=== PATIENT | male | born 1940 | race Caucasian/White ===

== ENCOUNTER 2018-11-15 10:02 | Emergency (ER) | payer BC, MEDICARE ==
[2018-11-15] MEDS: Morphine 10 MG/ML SDV IVPUSH ONE (11:08)
[2018-11-15] MEDS: Sodium Chloride 0.9% 1,000 ML IV SCH (11:20)
[2018-11-15] MEDS: Ketorolac 30 MG/ML SDV ONE (11:29)
[2018-11-15] MEDS: LORazepam 2 MG/ML SDV ONE (11:38)
--- NOTE | 2018-11-15 14:01 | EDM.PDOC ---
ED HPI GENERAL MEDICAL PROBLEM - General Stated Complaint: SEVERE ABDOMINAL PAIN Time Seen by Provider: 11/15/18 10:02 Source of Information: Reports: Patient, Family History Limitations: Reports: No Limitations - History of Present Illness INITIAL COMMENTS - FREE TEXT/NARRATIVE: This is a 78yo M who arrived by Private vehicle driven by his for severe lower abdominal pain. He states there is some radiation up the abdomen. He has a history of b/l lower inguinal hernias which have enlarged. He Denies prior pain like this but has has some tenderness and pain in the past which he has pushed through and not seen a provider. He denies any nausea and vomiting and he had a recent BM yesterday. Onset: Sudden Duration: Hour(s): Location: Reports: Abdomen Quality: Reports: Ache, Stabbing Severity: Severe Improves with: Reports: None Worsens with: Reports: None Associated Symptoms: Reports: No Other Symptoms - Related Data Allergies Allergy/AdvReac Type Severity Reaction Status Date / Time No Known Allergies Allergy Verified 11/15/18 11:52 Home Meds: Home Meds Alpha Lipoic Acid 100 mg PO DAILY 11/15/18 [History] Lecithin [Gram-O-Leci] 1,000 mg PO DAILY 11/15/18 [History] Levothyroxine 112 mcg PO DAILY 11/15/18 [History] Red Yeast Rice 600 mg PO DAILY 11/15/18 [History] Rutin/Quercetin/Bioflav/Bilber [Bilberry Extract 40 MG] 1 tab PO DAILY 11/15/18 [History] Ubidecarenone [Coenzyme Q10] 60 mg PO DAILY 11/15/18 [History] ED ROS GENERAL - Review of Systems Review Of Systems: ROS reveals no pertinent complaints other than HPI. ED EXAM, GI/ABD - Physical Exam Exam: See Below Exam Limited By: No Limitations General Appearance: Alert, WD/WN, Severe Distress Eyes: Bilateral: EOMI Ears: Normal External Exam Nose: Normal Inspection Throat/Mouth: Normal Inspection Head: Atraumatic, Normocephalic Neck: Normal Inspection Respiratory/Chest: No Respiratory Distress, Lungs Clear, Normal Breath Sounds Cardiovascular: Normal Peripheral Pulses, Tachycardia GI/Abdominal Exam: Abnormal Bowel Sounds (decrease BS) (Male) Exam: Other (large hernias b/l lower pelvis into b/l lower scrotum) Extremities: Other (mottling of thighs b/l; cyanosis of b/l hands) Psychiatric: Anxious Skin Exam: Cyanosis (of hands), Mottled (thighs) Course - Vital Signs Last Recorded V/S: Last Vital Signs Temp 35.8 C 11/15/18 10:35 Pulse 58 L 11/15/18 10:35 Resp 18 11/15/18 10:35 BP 93/64 11/15/18 10:35 Pulse Ox - Orders/Labs/Meds Orders: Active Orders 24 hr Category Date Time Status Cardiac Monitoring [RC] .As Directed Care 11/15/18 11:54 Active Abdomen Pelvis wo Cont [CT] Stat Exams 11/15/18 10:11 Taken Labs: Laboratory Tests 11/15/18 11/15/18 11/15/18 Range/Units 10:30 10:30 10:30 WBC 6.6 (4.0-11.0) K/uL RBC 4.74 (4.50-6.50) M/uL Hgb 14.2 (13.0-18.0) g/dL Hct 43.0 (40.0-54.0) % MCV 91 (76-96) fL MCH 30.0 (27.0-32.0) pg MCHC 33.0 (31.0-35.0) g/dL RDW 13.5 (11.0-16.0) % Plt Count 217 (150-400) K/uL MPV 11.5 H (6.0-10.0) fL Neut % (Auto) 88.6 H (45.0-70.0) % Lymph % (Auto) 7.3 L (20.0-40.0) % Newberry % (Auto) 3.0 (3.0-10.0) % Eos % (Auto) 0.9 L (1.0-5.0) % Baso % (Auto) 0.2 (0.0-0.5) % Neut # (Auto) 5.82 (2.00-7.50) K/uL Lymph # (Auto) 0.48 L (1.50-4.00) K/uL Newberry # (Auto) 0.20 (0.20-0.80) K/uL Eos # (Auto) 0.06 (0.04-0.40) K/uL Baso # (Auto) 0.01 L (0.02-0.10) K/uL PT 10.4 (9.0-11.5) sec INR 1.1 (1.0-3.5) Sodium 142 (136-145) mmol/L Potassium 4.2 (3.5-5.1) mmol/L Chloride 103 (98-107) mmol/L Carbon Dioxide 29.5 (21.0-32.0) mmol/L Anion Gap 13.7 (5.0-15.0) mmol/L BUN 24 (8-26) mg/dL Creatinine 1.29 (0.70-1.30) mg/dL Est Cr Clr Drug Dosing TNP Estimated GFR (MDRD) 54 L (>60) MLS/MIN BUN/Creatinine Ratio 18.6 (6-25) Glucose 148 H D (74-100) mg/dL Lactic Acid (0.90-1.70) mmol/L Calcium 8.8 (8.5-10.1) mg/dL Total Bilirubin 0.7 (0.0-1.0) mg/dL AST 22 (15-37) U/L ALT 20 (12-78) U/L Alkaline Phosphatase 85 (46-116) U/L Troponin I < 0.017 (0.000-0.060) ng/mL Total Protein 7.3 (6.4-8.2) g/dL Albumin 3.7 (3.4-5.0) g/dL Globulin 3.6 (2.2-4.2) g/dL Albumin/Globulin Ratio 1.0 (0.8-2.0) Lipase (73-393) U/L 11/15/18 11/15/18 Range/Units 10:30 10:30 WBC (4.0-11.0) K/uL RBC (4.50-6.50) M/uL Hgb (13.0-18.0) g/dL Hct (40.0-54.0) % MCV (76-96) fL MCH (27.0-32.0) pg MCHC (31.0-35.0) g/dL RDW (11.0-16.0) % Plt Count (150-400) K/uL MPV (6.0-10.0) fL Neut % (Auto) (45.0-70.0) % Lymph % (Auto) (20.0-40.0) % Newberry % (Auto) (3.0-10.0) % Eos % (Auto) (1.0-5.0) % Baso % (Auto) (0.0-0.5) % Neut # (Auto) (2.00-7.50) K/uL Lymph # (Auto) (1.50-4.00) K/uL Newberry # (Auto) (0.20-0.80) K/uL Eos # (Auto) (0.04-0.40) K/uL Baso # (Auto) (0.02-0.10) K/uL PT (9.0-11.5) sec INR (1.0-3.5) Sodium (136-145) mmol/L Potassium (3.5-5.1) mmol/L Chloride (98-107) mmol/L Carbon Dioxide (21.0-32.0) mmol/L Anion Gap (5.0-15.0) mmol/L BUN (8-26) mg/dL Creatinine (0.70-1.30) mg/dL Est Cr Clr Drug Dosing Estimated GFR (MDRD) (>60) MLS/MIN BUN/Creatinine Ratio (6-25) Glucose (74-100) mg/dL Lactic Acid 1.60 (0.90-1.70) mmol/L Calcium (8.5-10.1) mg/dL Total Bilirubin (0.0-1.0) mg/dL AST (15-37) U/L ALT (12-78) U/L Alkaline Phosphatase (46-116) U/L Troponin I (0.000-0.060) ng/mL Total Protein (6.4-8.2) g/dL Albumin (3.4-5.0) g/dL Globulin (2.2-4.2) g/dL Albumin/Globulin Ratio (0.8-2.0) Lipase 590 H* (73-393) U/L Meds: Medications Discontinued Medications Generic Name Dose Route Start Last Admin Trade Name Freq PRN Reason Stop Dose Admin Sodium Chloride 1,000 mls @ 999 mls/hr 11/15/18 12:00 11/15/18 11:20 Normal Saline IV 999 mls/hr ASDIRECTED GUILLERMINA Administration Ketorolac Tromethamine Confirm 11/15/18 11:33 11/15/18 11:29 Toradol Administered 11/15/18 11:34 30 mg Dose Administration 30 mg .ROUTE .STK-MED ONE Lorazepam Confirm 11/15/18 11:38 11/15/18 11:38 Ativan Administered 11/15/18 11:39 0.5 mg Dose Administration 2 mg .ROUTE .STK-MED ONE Morphine Sulfate 4 mg 11/15/18 11:55 11/15/18 11:08 Morphine IVPUSH 11/15/18 11:56 4 mg ONETIME ONE Administration - Re-Assessments/Exams Free Text/Narrative Re-Assessment/Exam: Mottling and cyanosis improved after patient calmed down after administration of Toradol 30 IV and 0.5mg Ativan. He did receive 4mg morphine but stated that did not help. Departure - Departure Time of Disposition: 14:00 Disposition: DC/Tfer to [facility] 02 Condition: Undetermined Clinical Impression: Hernia, Duodenal ulceration, Elevated lipase - Discharge Information Referrals: PCP,None [Primary Care Provider] - Forms: ED Department Discharge, ED Return to Work/School Form - Problem List & Annotations (1) Duodenal ulceration SNOMED Code(s): 85569303 Code(s): K26.9 - DUODENAL ULCER, UNSP ACUTE OR CHRONIC, W/O HEMOR OR PERF Status: Acute (2) Elevated lipase SNOMED Code(s): 820816186 Code(s): R74.8 - ABNORMAL LEVELS OF OTHER SERUM ENZYMES Status: Acute (3) Hernia SNOMED Code(s): 67030044 Code(s): K46.9 - UNSPECIFIED ABDOMINAL HERNIA WITHOUT OBSTRUCTION OR GANGRENE Status: Acute - Problem List Review Problem List Initiated/Reviewed/Updated: Yes - My Orders Last 24 Hours: My Active Orders 11/15/18 10:11 Abdomen Pelvis wo Cont [CT] Stat 11/15/18 11:54 Cardiac Monitoring [RC] .As Directed - Assessment/Plan Last 24 Hours: My Active Orders 11/15/18 10:11 Abdomen Pelvis wo Cont [CT] Stat 11/15/18 11:54 Cardiac Monitoring [RC] .As Directed Plan: [facility] and did not have a bed available for hours. Patient transferred in stable condition and pain controlled. Imaging sent to [facility] with labs and reports. Accepting provider Dr. Aguila in ER
--- NOTE | 2018-11-17 08:37 | CT ---
DATE OF SERVICE: 11/15/18 CLINICAL DATA: Severe abdominal pain. UNENHANCED ABDOMEN AND PELVIC CT: Multislice acquisition through the abdomen and pelvis without IV or oral contrast was performed. No priors. There are atelectatic changes in both lung bases. The lung base is otherwise clear. The heart is enlarged. There are severe coronary artery calcifications. There are also calcifications in the region of the aortic valve and mitral valve. The unenhanced liver appears normal. No focal hepatic lesions. There are multiple gallstones noted within the gallbladder. The gallbladder is mildly distended also with mild gallbladder wall thickening. Cholecystitis should be considered. There is a small hiatal hernia. There is fat stranding and fatty infiltration adjacent to the descending portion of the duodenum. There is also fat stranding adjacent to the gallbladder. This extends inferiorly into the anterior perirenal space as well as adjacent to the ascending colon and hepatic flexure. The findings are nonspecific. The possibility of ulcerative disease involving the duodenum should be considered. Other infectious or inflammatory processes should be considered. Pancreatitis cannot be excluded. There is mild perirenal fat stranding on the right. The kidneys appear normal. No nephrocalcinosis or nephrolithiasis. No hydronephrosis or hydroureter. The bladder is partially fluid filled. There is diffuse thickening of the bladder wall. Cystitis should be considered. There is a small amount of free fluid in the right pericolic gutter. There is also free fluid noted within the pelvis. No free air. No dilated loops of bowel. There is a moderate amount of stool present throughout the colon. There are large inguinal hernias bilaterally. The inguinal hernia on the left contains a segment of the descending and sigmoid colon. The hernia on the right contains small bowel and colon. Both of these extend into the scrotum. No aortic aneurysm. No adenopathy. No other significant findings. IMPRESSION: 1. Multiple abnormalities as discussed above. 2. The patient's healthcare provider was notified of the findings. [id number] MTDD
== END 2018-11-15 12:45 ==
LOC: LB.ED 10:02
DX: K26.9 Duodenal ulcer, unspecified as acute or chronic, without hemorrhage or perforation (principal); K46.9 Unspecified abdominal hernia without obstruction or gangrene; R74.8 Abnormal levels of other serum enzymes
CPT/HCPCS: 36415; 74176; 80053; 83605; 83690; 84484; 85025; 85610; 96361; 96374; 99285; A0425; A0429; J1885; J2060; J2270; J7030

== ENCOUNTER 2018-11-27 11:07 | Inpatient (IN) | payer MEDICARE ==
[2018-11-27] MEDS ORDERED: Metoprolol Tartrate 50 MG Tab ONE (13:30)
[2018-11-27] MEDS ORDERED: Metoprolol Tartrate 50 MG Tab PO ONE (13:34)
--- NOTE | 2018-11-27 14:11 | EDM.PDOC ---
ED HPI GENERAL MEDICAL PROBLEM - General Chief Complaint: General Stated Complaint: ILL Time Seen by Provider: 11/27/18 12:30 Source of Information: Reports: Patient, Family, Old Records History Limitations: Reports: Physical Impairment - History of Present Illness INITIAL COMMENTS - FREE TEXT/NARRATIVE: This is a 78yo M here for feeling weak and noted he was falling and almost fainting when walking with her assistance to the bathroom. He feels very weak but denies fever, chills, chest pain. He does have shortness of breath on exertion. He appears pale and weak. He has felt this way since discharge but appears to be very stoic and stubborn. He has difficulty standing on his own two feet. He has not been eating well and states he wasn't allowed to eat at all during his stay at [facility] (likely from his duodenal perforation). He has a poor appetite and feels like he is getting weaker. Onset: Gradual Duration: Day(s):, Getting Worse Location: Reports: Generalized Improves with: Reports: None Worsens with: Reports: Movement Associated Symptoms: Reports: Loss of Appetite, Weakness - Related Data Allergies Allergy/AdvReac Type Severity Reaction Status Date / Time No Known Allergies Allergy Verified 11/27/18 11:33 Home Meds: Home Meds Aspirin 81 mg PO DAILY 11/27/18 [History] Lecithin 1,200 mg PO DAILY 11/27/18 [History] Levothyroxine [Synthroid] 100 mcg PO DAILY 11/27/18 [History] Metoprolol Tartrate 50 mg PO BID 11/27/18 [History] Omeprazole 40 mg PO BID 11/27/18 [History] Tamsulosin [Flomax] 0.4 mg PO DAILY 11/27/18 [History] Past Medical History HEENT History: Reports: Cataract Cardiovascular History: Reports: Afib, Other (See Below) Other Cardiovascular History: 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 Gastrointestinal History: Reports: Other (See Below) Other Gastrointestinal History: Hernia bilaterally Genitourinary History: Reports: BPH Musculoskeletal History: Reports: Other (See Below) Other Musculoskeletal History: weakness Neurological History: Reports: CVA Endocrine/Metabolic History: Reports: Hypothyroidism - Past Surgical History Cardiovascular Surgical History: Reports: Carotid Endarterectomy Social & Family History - Tobacco Use Smoking Status *Q: Never Smoker - Caffeine Use Caffeine Use: Reports: Coffee - Recreational Drug Use Recreational Drug Use: No ED ROS GENERAL - Review of Systems Review Of Systems: ROS reveals no pertinent complaints other than HPI. ED EXAM, GENERAL - Physical Exam Exam: See Below Exam Limited By: No Limitations General Appearance: Alert, WD/WN, Thin Eye Exam: Bilateral Eye: EOMI, PERRL Ears: Normal External Exam Nose: Normal Inspection Throat/Mouth: Normal Inspection Head: Atraumatic, Normocephalic Neck: Normal Inspection Respiratory/Chest: No Respiratory Distress, Lungs Clear, Normal Breath Sounds Cardiovascular: Normal Peripheral Pulses, Tachycardia, Irregularly Irregular GI/Abdominal: Abnormal Bowel Sounds (decreased) Back Exam: Normal Inspection Extremities: Pedal Edema (2+) Neurological: Alert, Oriented, Sensory/Motor Deficit (decreased strength 3-4/5 all extremities) Skin Exam: Dry, Intact, Cool, Pallor Course - Vital Signs Last Recorded V/S: Last Vital Signs Temp 36.1 C 11/27/18 12:43 Pulse 135 H 11/27/18 13:34 Resp 20 11/27/18 12:43 BP 125/78 11/27/18 13:34 Pulse Ox 99 11/27/18 12:43 - Orders/Labs/Meds Orders: Active Orders 24 hr Category Date Time Status EKG Documentation Completion [RC] ASDIRECTED Care 11/27/18 11:13 Active Labs: Laboratory Tests 11/27/18 11/27/18 11/27/18 Range/Units 12:40 12:40 12:54 WBC 11.8 H D (4.0-11.0) K/uL RBC 3.28 L (4.50-6.50) M/uL Hgb 9.2 L D (13.0-18.0) g/dL Hct 29.3 L D (40.0-54.0) % MCV 89 (76-96) fL MCH 28.0 (27.0-32.0) pg MCHC 31.4 (31.0-35.0) g/dL RDW 13.7 (11.0-16.0) % Plt Count 453 H D (150-400) K/uL MPV 10.6 H (6.0-10.0) fL Neut % (Auto) 81.4 H (45.0-70.0) % Lymph % (Auto) 4.1 L (20.0-40.0) % [place] % (Auto) 13.6 H (3.0-10.0) % Eos % (Auto) 0.6 L (1.0-5.0) % Baso % (Auto) 0.3 (0.0-0.5) % Neut # (Auto) 9.63 H (2.00-7.50) K/uL Lymph # (Auto) 0.49 L (1.50-4.00) K/uL [place] # (Auto) 1.61 H (0.20-0.80) K/uL Eos # (Auto) 0.07 (0.04-0.40) K/uL Baso # (Auto) 0.04 (0.02-0.10) K/uL ABG pH 7.48 H (7.35-7.45) ABG pCO2 35.1 (35-45) mmHg ABG pO2 181 H* (80-105) mmHg ABG HCO3 26.1 H (22-26) mmol/L ABG O2 Saturation 100 H (95-98) % ABG Base Excess 3 H (-2-2) O2 Delivery Device Simple mask Sodium 140 (136-145) mmol/L Potassium 3.7 (3.5-5.1) mmol/L Chloride 105 (98-107) mmol/L Carbon Dioxide 29.5 (21.0-32.0) mmol/L Anion Gap 9.2 (5.0-15.0) mmol/L BUN 21 (8-26) mg/dL Creatinine 1.39 H (0.70-1.30) mg/dL Est Cr Clr Drug Dosing 42.26 mL/min Estimated GFR (MDRD) 49 L (>60) MLS/MIN BUN/Creatinine Ratio 15.1 (6-25) Glucose 169 H (74-100) mg/dL Calcium 7.6 L (8.5-10.1) mg/dL Total Bilirubin 0.5 (0.0-1.0) mg/dL AST 29 (15-37) U/L ALT 33 (12-78) U/L Alkaline Phosphatase 60 (46-116) U/L Troponin I < 0.017 (0.000-0.060) ng/mL B-Natriuretic Peptide 5025 H (0-450) pg/mL Total Protein 5.6 L (6.4-8.2) g/dL Albumin 1.6 L (3.4-5.0) g/dL Globulin 4.0 (2.2-4.2) g/dL Albumin/Globulin Ratio 0.4 L (0.8-2.0) Lipase 405 H D (73-393) U/L TSH, Ultra Sensitive 18.107 H D (0.358-3.740) uIU/mL Meds: Medications Discontinued Medications Generic Name Dose Route Start Last Admin Trade Name Clarisse PRN Reason Stop Dose Admin Metoprolol Tartrate Confirm 11/27/18 13:30 11/27/18 13:31 Lopressor Administered 11/27/18 13:31 50 mg Dose Administration 50 mg .ROUTE .STK-MED ONE Metoprolol Tartrate 50 mg 11/27/18 13:34 11/27/18 13:34 Lopressor PO 11/27/18 13:35 Not Given ONETIME ONE Departure - Departure Time of Disposition: 14:13 Disposition: Refer to Observation Condition: Poor Clinical Impression: Weakness, Renal dysfunction, Elevated lipase Anemia Qualifiers: Anemia type: unspecified type Qualified Code(s): D64.9 - Anemia, unspecified Hypothyroidism Qualifiers: Hypothyroidism type: other Qualified Code(s): E03.8 - Other specified hypothyroidism - Discharge Information Referrals: PCP,None [Primary Care Provider] - - Problem List & Annotations (1) Elevated lipase SNOMED Code(s): 352661960 Code(s): R74.8 - ABNORMAL LEVELS OF OTHER SERUM ENZYMES Status: Acute Priority: High Current Visit: Yes (2) Anemia SNOMED Code(s): 362264058 Code(s): D64.9 - ANEMIA, UNSPECIFIED Status: Acute Priority: High Current Visit: Yes Qualifiers: Anemia type: unspecified type Qualified Code(s): D64.9 - Anemia, unspecified (3) Hypothyroidism SNOMED Code(s): 08221882 Code(s): E03.9 - HYPOTHYROIDISM, UNSPECIFIED Status: Acute Priority: High Current Visit: Yes Qualifiers: Hypothyroidism type: other Qualified Code(s): E03.8 - Other specified hypothyroidism (4) Renal dysfunction Status: Acute Priority: High Current Visit: Yes (5) Weakness SNOMED Code(s): 55385144 Code(s): R53.1 - WEAKNESS Status: Acute Priority: High Current Visit: Yes - Problem List Review Problem List Initiated/Reviewed/Updated: Yes - My Orders Last 24 Hours: My Active Orders 11/27/18 11:13 EKG Documentation Completion [RC] ASDIRECTED - Assessment/Plan Last 24 Hours: My Active Orders 11/27/18 11:13 EKG Documentation Completion [RC] ASDIRECTED Plan: Patient to be referred to observation for monitoring and hydration. We will have PT evaluate. Patient is unsafe to go home. He was recommended post discharge from [facility] on 11/24/18 for subacute rehabilitation therapy but he refused. He is now unable to ambulate and has no strength to even go to the bathroom without falling part way. Patient would greatly benefit as requested and approved on November 24 for swing bed admission for PT for strengthening and ambulation for at least 2 weeks. He will need slow rehabilitation with minimal exercises until he can tolerate longer therapy. Repeat labs in am.
[2018-11-27] MEDS: Sodium Chloride 0.9% 10 ML Syringe FLUSH PRN ×2 (14:50→15:36)
[2018-11-27] MEDS ORDERED: Metoprolol Tartrate 5 MG/5 ML SDV IVPUSH ONE (17:31)
[2018-11-27] MEDS ORDERED: Metoprolol Tartrate 5 MG/5 ML SDV ONE (17:41)
[2018-11-27] MEDS: Metoprolol Tartrate 50 MG Tab PO SCH (20:49)
[2018-11-27] MEDS: Omeprazole 40 MG Cap.CR PO SCH (20:51)
[2018-11-27] MEDS: Omeprazole 20 MG Cap.CR ONE (21:28)
[2018-11-28] MEDS ORDERED: Levothyroxine 100 MCG Tab PO SCH (08:00)
[2018-11-28] MEDS ORDERED: LECITHIN 1200 MG PO SCH (08:00)
[2018-11-28] MEDS ORDERED: Omeprazole 20 MG Cap.CR ONE ×2 (08:12→19:47)
[2018-11-28] MEDS: Omeprazole 20 MG Cap.CR ONE (08:41)
[2018-11-28] MEDS: Levothyroxine 112 MCG Tab PO SCH (08:44)
[2018-11-28] MEDS: Omeprazole 40 MG Cap.CR PO SCH ×2 (08:44→21:04)
[2018-11-28] MEDS: Aspirin 81 MG Tab.Chew PO SCH (08:44)
[2018-11-28] MEDS: Metoprolol Tartrate 50 MG Tab PO SCH ×2 (08:45→21:04)
[2018-11-28] MEDS: Tamsulosin 0.4 MG Cap.ER PO SCH (08:45)
--- NOTE | 2018-11-28 11:08 | PCM.PN ---
- General Info Date of Service: 11/28/18 Subjective Update: Patient states he feels weak. He denies any chest pain or shortness of breath. He does have some shortness of breath on exertion. He denies any pain at this time. Functional Status: Reports: Pain Controlled, Tolerating Diet, Ambulating - Review of Systems General: Reports: Weakness HEENT: Reports: No Symptoms Pulmonary: Reports: Shortness of Breath Cardiovascular: Reports: No Symptoms Gastrointestinal: Reports: No Symptoms Musculoskeletal: Reports: No Symptoms Neurological: Reports: Difficulty Walking, Weakness - Patient Data Vitals - Most Recent: Last Vital Signs Temp 36.9 C 11/28/18 08:00 Pulse 86 11/28/18 08:45 Resp 16 11/28/18 08:00 BP 124/67 11/28/18 08:45 Pulse Ox 98 11/28/18 08:00 Weight - Most Recent: 68.039 kg I&O - Last 24 Hours: Intake & Output 11/27/18 11/28/18 11/28/18 22:59 06:59 14:59 Intake Total 200 Output Total 475 600 Balance -275 -600 Lab Results Last 24 Hours: Laboratory Results - last 24 hr 11/27/18 11/27/18 11/27/18 Range/Units 07:20 12:40 12:40 WBC 11.8 H D (4.0-11.0) K/uL RBC 3.28 L (4.50-6.50) M/uL Hgb 9.2 L D (13.0-18.0) g/dL Hct 29.3 L D (40.0-54.0) % MCV 89 (76-96) fL MCH 28.0 (27.0-32.0) pg MCHC 31.4 (31.0-35.0) g/dL RDW 13.7 (11.0-16.0) % Plt Count 453 H D (150-400) K/uL MPV 10.6 H (6.0-10.0) fL Neut % (Auto) 81.4 H (45.0-70.0) % Lymph % (Auto) 4.1 L (20.0-40.0) % [place] % (Auto) 13.6 H (3.0-10.0) % Eos % (Auto) 0.6 L (1.0-5.0) % Baso % (Auto) 0.3 (0.0-0.5) % Neut # (Auto) 9.63 H (2.00-7.50) K/uL Lymph # (Auto) 0.49 L (1.50-4.00) K/uL [place] # (Auto) 1.61 H (0.20-0.80) K/uL Eos # (Auto) 0.07 (0.04-0.40) K/uL Baso # (Auto) 0.04 (0.02-0.10) K/uL ABG pH (7.35-7.45) ABG pCO2 (35-45) mmHg ABG pO2 (80-105) mmHg ABG HCO3 (22-26) mmol/L ABG O2 Saturation (95-98) % ABG Base Excess (-2-2) O2 Delivery Device Sodium 140 (136-145) mmol/L Potassium 3.7 (3.5-5.1) mmol/L Chloride 105 (98-107) mmol/L Carbon Dioxide 29.5 (21.0-32.0) mmol/L Anion Gap 9.2 (5.0-15.0) mmol/L BUN 21 (8-26) mg/dL Creatinine 1.39 H (0.70-1.30) mg/dL Est Cr Clr Drug Dosing 42.26 mL/min Estimated GFR (MDRD) 49 L (>60) MLS/MIN BUN/Creatinine Ratio 15.1 (6-25) Glucose 169 H (74-100) mg/dL Calcium 7.6 L (8.5-10.1) mg/dL Total Bilirubin 0.5 (0.0-1.0) mg/dL AST 29 (15-37) U/L ALT 33 (12-78) U/L Alkaline Phosphatase 60 (46-116) U/L Troponin I < 0.017 (0.000-0.060) ng/mL B-Natriuretic Peptide 5025 H (0-450) pg/mL Total Protein 5.6 L (6.4-8.2) g/dL Albumin 1.6 L (3.4-5.0) g/dL Globulin 4.0 (2.2-4.2) g/dL Albumin/Globulin Ratio 0.4 L (0.8-2.0) Lipase 405 H D (73-393) U/L TSH, Ultra Sensitive 18.107 H D (0.358-3.740) uIU/mL Urine Color Yellow Urine Appearance Clear (CLEAR) Urine pH 6.5 (5.0-8.0) Ur Specific [place] 1.015 (1.003-1.030) Urine Protein 30 H (NEGATIVE) mg/dL Urine Glucose (UA) Negative (NEGATIVE) mg/dL Urine Ketones Negative (NEGATIVE) mg/dL Urine Occult Blood Negative (NEGATIVE) Urine Nitrite Negative (NEGATIVE) Urine Bilirubin Negative (NEGATIVE) Urine Urobilinogen 1.0 (0.2-1.0) E.U./dL Ur Leukocyte Esterase Negative (NEGATIVE) Urine RBC Not seen /HPF Urine WBC 0-5 H /HPF 11/27/18 11/28/18 11/28/18 Range/Units 12:54 07:20 07:20 WBC 11.2 H (4.0-11.0) K/uL RBC 3.02 L (4.50-6.50) M/uL Hgb 8.7 L (13.0-18.0) g/dL Hct 27.4 L (40.0-54.0) % MCV 91 (76-96) fL MCH 28.8 (27.0-32.0) pg MCHC 31.8 (31.0-35.0) g/dL RDW 13.8 (11.0-16.0) % Plt Count 460 H (150-400) K/uL MPV 10.5 H (6.0-10.0) fL Neut % (Auto) 80.4 H (45.0-70.0) % Lymph % (Auto) 4.5 L (20.0-40.0) % [place] % (Auto) 13.5 H (3.0-10.0) % Eos % (Auto) 1.2 (1.0-5.0) % Baso % (Auto) 0.4 (0.0-0.5) % Neut # (Auto) 9.03 H (2.00-7.50) K/uL Lymph # (Auto) 0.50 L (1.50-4.00) K/uL [place] # (Auto) 1.51 H (0.20-0.80) K/uL Eos # (Auto) 0.13 (0.04-0.40) K/uL Baso # (Auto) 0.04 (0.02-0.10) K/uL ABG pH 7.48 H (7.35-7.45) ABG pCO2 35.1 (35-45) mmHg ABG pO2 181 H* (80-105) mmHg ABG HCO3 26.1 H (22-26) mmol/L ABG O2 Saturation 100 H (95-98) % ABG Base Excess 3 H (-2-2) O2 Delivery Device Simple mask Sodium 140 (136-145) mmol/L Potassium 3.8 (3.5-5.1) mmol/L Chloride 103 (98-107) mmol/L Carbon Dioxide 27.7 (21.0-32.0) mmol/L Anion Gap 13.1 (5.0-15.0) mmol/L BUN 21 (8-26) mg/dL Creatinine 1.40 H (0.70-1.30) mg/dL Est Cr Clr Drug Dosing 41.95 mL/min Estimated GFR (MDRD) 49 L (>60) MLS/MIN BUN/Creatinine Ratio 15.0 (6-25) Glucose 143 H (74-100) mg/dL Calcium 7.5 L (8.5-10.1) mg/dL Total Bilirubin 0.5 (0.0-1.0) mg/dL AST 29 (15-37) U/L ALT 31 (12-78) U/L Alkaline Phosphatase 53 (46-116) U/L Troponin I (0.000-0.060) ng/mL B-Natriuretic Peptide (0-450) pg/mL Total Protein 5.7 L (6.4-8.2) g/dL Albumin 1.6 L (3.4-5.0) g/dL Globulin 4.1 (2.2-4.2) g/dL Albumin/Globulin Ratio 0.4 L (0.8-2.0) Lipase (73-393) U/L TSH, Ultra Sensitive (0.358-3.740) uIU/mL Urine Color Urine Appearance (CLEAR) Urine pH (5.0-8.0) Ur Specific [place] (1.003-1.030) Urine Protein (NEGATIVE) mg/dL Urine Glucose (UA) (NEGATIVE) mg/dL Urine Ketones (NEGATIVE) mg/dL Urine Occult Blood (NEGATIVE) Urine Nitrite (NEGATIVE) Urine Bilirubin (NEGATIVE) Urine Urobilinogen (0.2-1.0) E.U./dL Ur Leukocyte Esterase (NEGATIVE) Urine RBC /HPF Urine WBC /HPF Med Orders - Current: Current Medications Aspirin (Aspirin) 81 mg PO DAILY [facility] Last Admin: 11/28/18 08:44 Dose: 81 mg Sodium Chloride (Normal Saline) 1,000 mls @ 85 mls/hr IV ASDIRECTED [facility] Levothyroxine Sodium (Levothyroxine) 112 mcg PO DAILY [facility] Last Admin: 11/28/18 08:44 Dose: 112 mcg Metoprolol Tartrate (Lopressor) 50 mg PO BID [facility] Last Admin: 11/28/18 08:45 Dose: 50 mg Non-Formulary Medication (Lecithin [Lecithin]) 1,200 mg PO DAILY [facility] Omeprazole (Omeprazole) 40 mg PO BID [facility] Last Admin: 11/28/18 08:44 Dose: 40 mg Sodium Chloride (Saline Flush) 10 ml FLUSH ASDIRECTED PRN PRN Reason: Keep Vein Open Last Admin: 11/27/18 15:36 Dose: 10 ml Tamsulosin HCl (Flomax) 0.4 mg PO DAILY [facility] Last Admin: 11/28/18 08:45 Dose: 0.4 mg Discontinued Medications Levothyroxine Sodium (Synthroid) 100 mcg PO DAILY [facility] Metoprolol Tartrate (Lopressor) Confirm Administered Dose 50 mg .ROUTE .ST[facility]-MED ONE Stop: 11/27/18 13:31 Last Admin: 11/27/18 13:31 Dose: 50 mg Metoprolol Tartrate (Lopressor) 50 mg PO ONETIME ONE Stop: 11/27/18 13:35 Last Admin: 11/27/18 13:34 Dose: Not Given Metoprolol Tartrate (Lopressor) 5 mg IVPUSH ONETIME ONE Stop: 11/27/18 17:32 Last Admin: 11/27/18 17:41 Dose: 5 mg Metoprolol Tartrate (Lopressor) Confirm Administered Dose 5 mg .ROUTE .STK-MED ONE Stop: 11/27/18 17:42 Last Admin: 11/27/18 17:49 Dose: Not Given Omeprazole (Omeprazole) Confirm Administered Dose 40 mg .ROUTE .[employer] ONE Stop: 11/27/18 20:46 Last Admin: 11/28/18 08:41 Dose: 40 mg Omeprazole (Omeprazole) Confirm Administered Dose 40 mg .ROUTE .[employer]-MED ONE Stop: 11/28/18 08:13 Last Admin: 11/28/18 08:45 Dose: Not Given - Exam General: Alert, Oriented, Cooperative HEENT: Pupils Equal, Pupils Reactive, EOMI Neck: Supple Lungs: Clear to Auscultation, Normal Respiratory Effort Cardiovascular: Regular Rate, Irregular Rhythm GI/Abdominal Exam: Normal Bowel Sounds, Soft, Non-Tender, No Abnormal Bruit (Male) Exam: Scrotal Swelling Extremities: Normal Inspection - Problem List & Annotations (1) Elevated lipase SNOMED Code(s): 173430834 Code(s): R74.8 - ABNORMAL LEVELS OF OTHER SERUM ENZYMES Status: Acute Priority: High Current Visit: Yes (2) Anemia SNOMED Code(s): 936957355 Code(s): D64.9 - ANEMIA, UNSPECIFIED Status: Acute Priority: High Current Visit: Yes Qualifiers: Anemia type: unspecified type Qualified Code(s): D64.9 - Anemia, unspecified (3) Hypothyroidism SNOMED Code(s): 32530171 Code(s): E03.9 - HYPOTHYROIDISM, UNSPECIFIED Status: Acute Priority: High Current Visit: Yes Qualifiers: Hypothyroidism type: other Qualified Code(s): E03.8 - Other specified hypothyroidism (4) Renal dysfunction Status: Acute Priority: High Current Visit: Yes (5) Weakness SNOMED Code(s): 55256579 Code(s): R53.1 - WEAKNESS Status: Acute Priority: High Current Visit: Yes (6) Atrial fibrillation with RVR SNOMED Code(s): 848166458982187 Code(s): I48.91 - UNSPECIFIED ATRIAL FIBRILLATION Status: Acute Current Visit: Yes (7) Cellulitis SNOMED Code(s): 966593881 Code(s): L03.90 - CELLULITIS, UNSPECIFIED Status: Acute Current Visit: Yes - Problem List Review Problem List Initiated/Reviewed/Updated: Yes - My Orders Last 24 Hours: My Active Orders 11/27/18 11:13 EKG Documentation Completion [RC] ASDIRECTED 11/27/18 16:40 Patient Status [ADT] Routine Ambulate [RC] PER UNIT ROUTINE Oxygen Therapy [RC] PRN Up With Assistance [RC] ASDIRECTED Vital Signs [RC] Q4H 11/27/18 16:44 Sodium Chloride 0.9% [Saline Flush] 10 ml FLUSH ASDIRECTED PRN Peripheral IV Insertion Adult [OM.PC] Routine 11/27/18 16:46 Telemetry Monitoring [Cardiac Monitoring] [RC] 06,08,18,20 11/27/18 18:23 CULTURE MRSA SURVEY [RM] Routine 11/27/18 20:00 Metoprolol Tartrate [Lopressor] 50 mg PO BID Omeprazole 40 mg PO BID 11/27/18 Dinner Regular Diet [DIET] 11/28/18 08:00 Aspirin 81 mg PO DAILY Lecithin [Lecithin] 1,200 mg PO DAILY Levothyroxine 112 mcg PO DAILY Tamsulosin [Flomax] 0.4 mg PO DAILY 11/28/18 08:15 Sodium Chloride 0.9% [Normal Saline] 1,000 ml IV ASDIRECTED 11/28/18 09:32 Consult to Physical Therapy [PT Evaluation and Treatment] [CONS] Routine 11/28/18 09:33 Consult to Occupational Therapy [OT Evaluation and Treatment] [CONS] Routine 11/29/18 05:11 CBC WITH AUTO DIFF [HEME] AM COMPREHENSIVE METABOLIC PN,CMP [CHEM] AM 11/30/18 05:11 CBC WITH AUTO DIFF [HEME] AM COMPREHENSIVE METABOLIC PN,CMP [CHEM] AM 12/01/18 05:11 CBC WITH AUTO DIFF [HEME] AM COMPREHENSIVE METABOLIC PN,CMP [CHEM] AM - Plan Plan:: Patient will continue on current rate control of Atrial fibrillation. We will continue to monitor with PT/OT for his exercise tolerance. He is extremely weak and unable to get up without assistance. Continue telemetry at this time. Patient has improved rate control and is around 80's but does have frequent increases in pulse - we may have to titrate his medications for rate control.
[2018-11-28] MEDS: Sodium Chloride 0.9% 1,000 ML IV SCH (14:18)
--- NOTE | 2018-11-28 20:05 | PCM.SN ---
- Free Text/Narrative Note: Patient seen at 1999. He denies any current concerns. Nursing report swelling and redness of the scrotum. Patient denies scrotal pain but states it is irritated from sitting on it so long and it getting stuck in the commode. Redness and induration of the left lower scrotal skin and some milder induration of the right scrotum. Counseled on antibiotics and treatment of early cellulitis. Discussed close monitoring and f/u and counseled on side effects. Patient agrees with plan of care.
[2018-11-28] MEDS ORDERED: cefTRIAXone 1 GM in Sodium Chloride 0.9% 50 ML IV SCH (20:15)
[2018-11-28] MEDS: cefTRIAXone 1 GM in Sodium Chloride 0.9% 50 ML IV SCH (21:12)
[2018-11-29] MEDS: Sodium Chloride 0.9% 1,000 ML IV SCH (02:36)
[2018-11-29] MEDS: Levothyroxine 112 MCG Tab PO SCH (07:48)
[2018-11-29] MEDS: Metoprolol Tartrate 50 MG Tab PO SCH ×2 (07:48→19:44)
[2018-11-29] MEDS: Tamsulosin 0.4 MG Cap.ER PO SCH (07:48)
[2018-11-29] MEDS: Aspirin 81 MG Tab.Chew PO SCH (07:48)
[2018-11-29] MEDS ORDERED: Omeprazole 20 MG Cap.CR ONE ×2 (07:51→19:35)
[2018-11-29] MEDS: Omeprazole 40 MG Cap.CR PO SCH ×2 (07:52→19:44)
--- NOTE | 2018-11-29 09:12 | PCM.PN ---
- General Info Date of Service: 11/29/18 Functional Status: Reports: Pain Controlled, Tolerating Diet, Urinating - Review of Systems General: Reports: Weakness HEENT: Reports: No Symptoms Pulmonary: Reports: Shortness of Breath Cardiovascular: Reports: No Symptoms Gastrointestinal: Reports: No Symptoms Genitourinary: Reports: No Symptoms Musculoskeletal: Reports: No Symptoms Skin: Reports: No Symptoms Neurological: Reports: Weakness Psychiatric: Reports: No Symptoms - Patient Data Vitals - Most Recent: Last Vital Signs Temp 37.4 C 11/29/18 05:00 Pulse 86 11/29/18 07:48 Resp 16 11/29/18 05:00 BP 129/70 11/29/18 07:48 Pulse Ox 93 L 11/29/18 05:00 Weight - Most Recent: 68.039 kg I&O - Last 24 Hours: Intake & Output 11/28/18 11/29/18 11/29/18 22:59 06:59 14:59 Intake Total 530 824 Output Total 300 600 Balance 230 224 Lab Results Last 24 Hours: Laboratory Results - last 24 hr 11/29/18 11/29/18 Range/Units 07:05 07:05 WBC 12.9 H (4.0-11.0) K/uL RBC 3.00 L (4.50-6.50) M/uL Hgb 8.7 L (13.0-18.0) g/dL Hct 27.2 L (40.0-54.0) % MCV 91 (76-96) fL MCH 29.0 (27.0-32.0) pg MCHC 32.0 (31.0-35.0) g/dL RDW 13.4 (11.0-16.0) % Plt Count 471 H (150-400) K/uL MPV 10.6 H (6.0-10.0) fL Neut % (Auto) 82.2 H (45.0-70.0) % Lymph % (Auto) 4.2 L (20.0-40.0) % [place] % (Auto) 12.6 H (3.0-10.0) % Eos % (Auto) 0.8 L (1.0-5.0) % Baso % (Auto) 0.2 (0.0-0.5) % Neut # (Auto) 10.59 H (2.00-7.50) K/uL Lymph # (Auto) 0.54 L (1.50-4.00) K/uL [place] # (Auto) 1.62 H (0.20-0.80) K/uL Eos # (Auto) 0.10 (0.04-0.40) K/uL Baso # (Auto) 0.03 (0.02-0.10) K/uL Sodium 139 (136-145) mmol/L Potassium 3.9 (3.5-5.1) mmol/L Chloride 103 (98-107) mmol/L Carbon Dioxide 26.9 (21.0-32.0) mmol/L Anion Gap 13.0 (5.0-15.0) mmol/L BUN 17 (8-26) mg/dL Creatinine 1.32 H (0.70-1.30) mg/dL Est Cr Clr Drug Dosing 44.39 mL/min Estimated GFR (MDRD) 52 L (>60) MLS/MIN BUN/Creatinine Ratio 12.9 (6-25) Glucose 151 H (74-100) mg/dL Calcium 7.7 L (8.5-10.1) mg/dL Total Bilirubin 0.4 (0.0-1.0) mg/dL AST 24 (15-37) U/L ALT 29 (12-78) U/L Alkaline Phosphatase 63 (46-116) U/L Total Protein 5.7 L (6.4-8.2) g/dL Albumin 1.6 L (3.4-5.0) g/dL Globulin 4.1 (2.2-4.2) g/dL Albumin/Globulin Ratio 0.4 L (0.8-2.0) Med Orders - Current: Current Medications Aspirin (Aspirin) 81 mg PO DAILY [facility] Last Admin: 11/29/18 07:48 Dose: 81 mg Sodium Chloride (Normal Saline) 1,000 mls @ 85 mls/hr IV ASDIRECTED [facility] Last Admin: 11/29/18 02:36 Dose: 85 mls/hr Ceftriaxone Sodium 1 gm/ (Sodium Chloride) 50 mls @ 200 mls/hr IV Q24H [facility] Stop: 12/05/18 20:16 Last Admin: 11/28/18 21:12 Dose: 200 mls/hr Levothyroxine Sodium (Levothyroxine) 112 mcg PO DAILY [facility] Last Admin: 11/29/18 07:48 Dose: 112 mcg Metoprolol Tartrate (Lopressor) 50 mg PO BID [facility] Last Admin: 11/29/18 07:48 Dose: 50 mg Non-Formulary Medication (Lecithin [Lecithin]) 1,200 mg PO DAILY [facility] Omeprazole (Omeprazole) 40 mg PO BID [facility] Last Admin: 11/29/18 07:52 Dose: 40 mg Sodium Chloride (Saline Flush) 10 ml FLUSH ASDIRECTED PRN PRN Reason: Keep Vein Open Last Admin: 11/27/18 15:36 Dose: 10 ml Tamsulosin HCl (Flomax) 0.4 mg PO DAILY [facility] Last Admin: 11/29/18 07:48 Dose: 0.4 mg Discontinued Medications Ceftriaxone Sodium 1 gm/ (Sodium Chloride) 50 mls @ 200 mls/hr IV Q24H [facility] Levothyroxine Sodium (Synthroid) 100 mcg PO DAILY [facility] Metoprolol Tartrate (Lopressor) Confirm Administered Dose 50 mg .ROUTE .[employer]-MED ONE Stop: 11/27/18 13:31 Last Admin: 11/27/18 13:31 Dose: 50 mg Metoprolol Tartrate (Lopressor) 50 mg PO ONETIME ONE Stop: 11/27/18 13:35 Last Admin: 11/27/18 13:34 Dose: Not Given Metoprolol Tartrate (Lopressor) 5 mg IVPUSH ONETIME ONE Stop: 11/27/18 17:32 Last Admin: 11/27/18 17:41 Dose: 5 mg Metoprolol Tartrate (Lopressor) Confirm Administered Dose 5 mg .ROUTE .[employer]-MED ONE Stop: 11/27/18 17:42 Last Admin: 11/27/18 17:49 Dose: Not Given Omeprazole (Omeprazole) Confirm Administered Dose 40 mg .ROUTE .[employer]-MED ONE Stop: 11/27/18 20:46 Last Admin: 11/28/18 08:41 Dose: 40 mg Omeprazole (Omeprazole) Confirm Administered Dose 40 mg .ROUTE .STK-MED ONE Stop: 11/28/18 08:13 Last Admin: 11/28/18 08:45 Dose: Not Given Omeprazole (Omeprazole) Confirm Administered Dose 40 mg .ROUTE .STK-MED ONE Stop: 11/28/18 19:48 Last Admin: 11/28/18 21:04 Dose: Not Given Omeprazole (Omeprazole) Confirm Administered Dose 40 mg .ROUTE .STK-MED ONE Stop: 11/29/18 07:52 - Exam General: Alert, Oriented, Cooperative HEENT: Pupils Equal, Pupils Reactive, EOMI Neck: Supple Lungs: Normal Respiratory Effort, Rhonchi Cardiovascular: Regular Rate, Regular Rhythm GI/Abdominal Exam: Normal Bowel Sounds, Soft, Non-Tender, Hernia, Other (large b /l scrotal hernia) (Male) Exam: Scrotal Swelling, Scrotum Tenderness (L), Scrotum Tenderness (R) , Testicular Mass (hernias) Extremities: Normal Inspection - Problem List & Annotations (1) Elevated lipase SNOMED Code(s): 081693045 Code(s): R74.8 - ABNORMAL LEVELS OF OTHER SERUM ENZYMES Status: Acute Priority: High Current Visit: Yes (2) Anemia SNOMED Code(s): 816651146 Code(s): D64.9 - ANEMIA, UNSPECIFIED Status: Acute Priority: High Current Visit: Yes Qualifiers: Anemia type: unspecified type Qualified Code(s): D64.9 - Anemia, unspecified (3) Hypothyroidism SNOMED Code(s): 88807448 Code(s): E03.9 - HYPOTHYROIDISM, UNSPECIFIED Status: Acute Priority: High Current Visit: Yes Qualifiers: Hypothyroidism type: other Qualified Code(s): E03.8 - Other specified hypothyroidism (4) Renal dysfunction Status: Acute Priority: High Current Visit: Yes (5) Weakness SNOMED Code(s): 05344493 Code(s): R53.1 - WEAKNESS Status: Acute Priority: High Current Visit: Yes (6) Atrial fibrillation with RVR SNOMED Code(s): 927171487623920 Code(s): I48.91 - UNSPECIFIED ATRIAL FIBRILLATION Status: Acute Current Visit: Yes (7) Cellulitis SNOMED Code(s): 312326529 Code(s): L03.90 - CELLULITIS, UNSPECIFIED Status: Acute Current Visit: Yes - Problem List Review Problem List Initiated/Reviewed/Updated: Yes - My Orders Last 24 Hours: My Active Orders 11/28/18 08:15 Sodium Chloride 0.9% [Normal Saline] 1,000 ml IV ASDIRECTED 11/28/18 09:32 Consult to Physical Therapy [PT Evaluation and Treatment] [CONS] Routine 11/28/18 09:33 Consult to Occupational Therapy [OT Evaluation and Treatment] [CONS] Routine 11/28/18 20:15 cefTRIAXone [Rocephin] 1 gm Sodium Chloride 0.9% [Normal Saline] 50 ml IV Q24H 11/30/18 05:11 CBC WITH AUTO DIFF [HEME] AM COMPREHENSIVE METABOLIC PN,CMP [CHEM] AM 12/01/18 05:11 CBC WITH AUTO DIFF [HEME] AM COMPREHENSIVE METABOLIC PN,CMP [CHEM] AM - Plan Plan:: Patient will continue on current rate control of Atrial fibrillation. We will continue to monitor with PT/OT for his exercise tolerance. He is extremely weak and unable to get up without assistance. Continue telemetry at this time. Patient has improved rate control and is around 80's but does have frequent increases in pulse - we may have to titrate his medications for rate control. 11/29/18 Cellulitis - improved scrotal pain and erythema. We will continue Rocephin for at least 3 more days. Atrial Fib with RVR - rate controlled. Continue metoprolol at this time. Weakness - f/u with PT at this time for plan of care but will need at least 2-3 weeks for strengthening and ambulation. PT recommendation for swing bed rehabilitation Skilled PT 5x/wk for 1 week - OT evaluated and recommend 3 wks of therapy. First week for complete grooming and setup assistance.. Second and third week for complete total body dressing independence/mod indep. and for ability to complete mobility /transfer independently. Patient labs ordered and f/u in am. Continue telemetry at this time to monitor for paroxysmal atrial fibrillation or reversion to atrial fib.
[2018-11-29] MEDS: cefTRIAXone 1 GM in Sodium Chloride 0.9% 50 ML IV SCH (19:46)
[2018-11-29] MEDS ORDERED: cefTRIAXone 1 GM in Sodium Chloride 0.9% 50 ML IV SCH (23:00)
[2018-11-30] MEDS: Sodium Chloride 0.9% 1,000 ML IV SCH ×2 (01:04→16:26)
[2018-11-30] MEDS: Levothyroxine 112 MCG Tab PO SCH (07:40)
[2018-11-30] MEDS: Omeprazole 20 MG Cap.CR PO SCH ×2 (07:41→20:22)
[2018-11-30] MEDS: Aspirin 81 MG Tab.Chew PO SCH (07:41)
[2018-11-30] MEDS: Tamsulosin 0.4 MG Cap.ER PO SCH (07:41)
[2018-11-30] MEDS: Metoprolol Tartrate 50 MG Tab PO SCH ×2 (07:41→20:22)
--- NOTE | 2018-11-30 14:02 | PCM.PN ---
- General Info Date of Service: 11/30/18 Subjective Update: This is a frail 78yo M who has been resting comfortably in bed with no current concerns. Patient states he feels ok. He denies any further scrotal pain. He has a slightly decreased appetite and denies other issues to date. He has been working with PT/OT for ambulation and strength when he developed a scrotal cellulitis over his very large hernia into the scrotum. He is tolerating his IV antibiotics at this time. Functional Status: Reports: Tolerating Diet (Does not eat his whole meal. ) - Review of Systems General: Reports: Weakness HEENT: Reports: No Symptoms Pulmonary: Reports: Shortness of Breath (on exertion) Cardiovascular: Reports: No Symptoms Gastrointestinal: Reports: Decreased Appetite Genitourinary: Reports: No Symptoms Musculoskeletal: Reports: No Symptoms Skin: Reports: No Symptoms Neurological: Reports: Weakness - Patient Data Vitals - Most Recent: Last Vital Signs Temp 37.2 C 11/30/18 07:42 Pulse 148 H 11/30/18 07:42 Resp 18 11/30/18 07:42 BP 148/67 H 11/30/18 07:41 Pulse Ox 95 11/30/18 07:42 Weight - Most Recent: 68.039 kg I&O - Last 24 Hours: Intake & Output 11/29/18 11/30/18 11/30/18 22:59 06:59 14:59 Intake Total 1190 Output Total 650 1190 Balance -650 0 Lab Results Last 24 Hours: Laboratory Results - last 24 hr 11/30/18 11/30/18 Range/Units 07:10 07:10 WBC 12.8 H (4.0-11.0) K/uL RBC 2.93 L (4.50-6.50) M/uL Hgb 8.4 L (13.0-18.0) g/dL Hct 26.6 L (40.0-54.0) % MCV 91 (76-96) fL MCH 28.7 (27.0-32.0) pg MCHC 31.6 (31.0-35.0) g/dL RDW 13.3 (11.0-16.0) % Plt Count 483 H (150-400) K/uL MPV 10.6 H (6.0-10.0) fL Neut % (Auto) 81.3 H (45.0-70.0) % Lymph % (Auto) 4.4 L (20.0-40.0) % [place] % (Auto) 13.1 H (3.0-10.0) % Eos % (Auto) 0.9 L (1.0-5.0) % Baso % (Auto) 0.3 (0.0-0.5) % Neut # (Auto) 10.40 H (2.00-7.50) K/uL Lymph # (Auto) 0.57 L (1.50-4.00) K/uL [place] # (Auto) 1.68 H (0.20-0.80) K/uL Eos # (Auto) 0.12 (0.04-0.40) K/uL Baso # (Auto) 0.04 (0.02-0.10) K/uL Sodium 138 (136-145) mmol/L Potassium 3.8 (3.5-5.1) mmol/L Chloride 104 (98-107) mmol/L Carbon Dioxide 26.4 (21.0-32.0) mmol/L Anion Gap 11.4 (5.0-15.0) mmol/L BUN 11 D (8-26) mg/dL Creatinine 1.23 (0.70-1.30) mg/dL Est Cr Clr Drug Dosing 47.63 mL/min Estimated GFR (MDRD) 57 L (>60) MLS/MIN BUN/Creatinine Ratio 8.9 (6-25) Glucose 144 H (74-100) mg/dL Calcium 7.4 L (8.5-10.1) mg/dL Total Bilirubin 0.4 (0.0-1.0) mg/dL AST 23 (15-37) U/L ALT 26 (12-78) U/L Alkaline Phosphatase 63 (46-116) U/L Total Protein 5.4 L (6.4-8.2) g/dL Albumin 1.5 L (3.4-5.0) g/dL Globulin 3.9 (2.2-4.2) g/dL Albumin/Globulin Ratio 0.4 L (0.8-2.0) Silas Results Last 24 Hours: Microbiology 11/27/18 18:23 MRSA Surveillance Culture - Final Nares, Left NO MRSA ISOLATED Med Orders - Current: Current Medications Aspirin (Aspirin) 81 mg PO DAILY [facility] Last Admin: 11/30/18 07:41 Dose: 81 mg Sodium Chloride (Normal Saline) 1,000 mls @ 85 mls/hr IV ASDIRECTED [facility] Last Admin: 11/30/18 01:04 Dose: 85 mls/hr Ceftriaxone Sodium 1 gm/ (Sodium Chloride) 50 mls @ 200 mls/hr IV Q24H [facility] Levothyroxine Sodium (Levothyroxine) 112 mcg PO DAILY [facility] Last Admin: 11/30/18 07:40 Dose: 112 mcg Metoprolol Tartrate (Lopressor) 50 mg PO BID [facility] Last Admin: 11/30/18 07:41 Dose: 50 mg Non-Formulary Medication (Lecithin [Lecithin]) 1,200 mg PO DAILY [facility] Omeprazole (Omeprazole) 40 mg PO BID [facility] Last Admin: 11/30/18 07:41 Dose: 40 mg Sodium Chloride (Saline Flush) 10 ml FLUSH ASDIRECTED PRN PRN Reason: Keep Vein Open Last Admin: 11/27/18 15:36 Dose: 10 ml Tamsulosin HCl (Flomax) 0.4 mg PO DAILY [facility] Last Admin: 11/30/18 07:41 Dose: 0.4 mg Discontinued Medications Ceftriaxone Sodium 1 gm/ (Sodium Chloride) 50 mls @ 200 mls/hr IV Q24H [facility] Ceftriaxone Sodium 1 gm/ (Sodium Chloride) 50 mls @ 200 mls/hr IV Q24H [facility] Stop: 12/05/18 20:16 Last Admin: 11/29/18 19:46 Dose: 200 mls/hr Ceftriaxone Sodium 1 gm/ (Sodium Chloride) 50 mls @ 200 mls/hr IV Q24H [facility] Stop: 12/05/18 20:16 Last Admin: 11/29/18 23:16 Dose: Not Given Levothyroxine Sodium (Synthroid) 100 mcg PO DAILY [facility] Metoprolol Tartrate (Lopressor) Confirm Administered Dose 50 mg .ROUTE .STK-MED ONE Stop: 11/27/18 13:31 Last Admin: 11/27/18 13:31 Dose: 50 mg Metoprolol Tartrate (Lopressor) 50 mg PO ONETIME ONE Stop: 11/27/18 13:35 Last Admin: 11/27/18 13:34 Dose: Not Given Metoprolol Tartrate (Lopressor) 5 mg IVPUSH ONETIME ONE Stop: 11/27/18 17:32 Last Admin: 11/27/18 17:41 Dose: 5 mg Metoprolol Tartrate (Lopressor) Confirm Administered Dose 5 mg .ROUTE .[employer]-MED ONE Stop: 11/27/18 17:42 Last Admin: 11/27/18 17:49 Dose: Not Given Omeprazole (Omeprazole) 40 mg PO BID [facility] Last Admin: 11/29/18 19:44 Dose: 40 mg Omeprazole (Omeprazole) Confirm Administered Dose 40 mg .ROUTE .[employer]-MED ONE Stop: 11/27/18 20:46 Last Admin: 11/28/18 08:41 Dose: 40 mg Omeprazole (Omeprazole) Confirm Administered Dose 40 mg .ROUTE .[employer] ONE Stop: 11/28/18 08:13 Last Admin: 11/28/18 08:45 Dose: Not Given Omeprazole (Omeprazole) Confirm Administered Dose 40 mg .ROUTE .[employer] ONE Stop: 11/28/18 19:48 Last Admin: 11/28/18 21:04 Dose: Not Given Omeprazole (Omeprazole) Confirm Administered Dose 40 mg .ROUTE .[employer] ONE Stop: 11/29/18 07:52 Last Admin: 11/29/18 18:34 Dose: Not Given Omeprazole (Omeprazole) Confirm Administered Dose 40 mg .ROUTE .[employer] ONE Stop: 11/29/18 19:36 Last Admin: 11/29/18 19:44 Dose: Not Given - Exam General: Alert, Cooperative HEENT: Pupils Equal, Pupils Reactive, EOMI Neck: Supple Lungs: Clear to Auscultation, Normal Respiratory Effort Cardiovascular: Regular Rate, Regular Rhythm GI/Abdominal Exam: Normal Bowel Sounds, Soft, Non-Tender (Male) Exam: Scrotal Swelling, Scrotum Tenderness (L), Scrotum Tenderness (R) Back Exam: Normal Inspection Extremities: Normal Inspection - Problem List & Annotations (1) Elevated lipase SNOMED Code(s): 705903822 Code(s): R74.8 - ABNORMAL LEVELS OF OTHER SERUM ENZYMES Status: Resolved Priority: High Current Visit: Yes (2) Anemia SNOMED Code(s): 028386849 Code(s): D64.9 - ANEMIA, UNSPECIFIED Status: Acute Priority: High Current Visit: Yes Qualifiers: Anemia type: unspecified type Qualified Code(s): D64.9 - Anemia, unspecified (3) Hypothyroidism SNOMED Code(s): 84117467 Code(s): E03.9 - HYPOTHYROIDISM, UNSPECIFIED Status: Acute Priority: High Current Visit: Yes Qualifiers: Hypothyroidism type: other Qualified Code(s): E03.8 - Other specified hypothyroidism (4) Renal dysfunction Status: Resolved Priority: High Current Visit: Yes (5) Weakness SNOMED Code(s): 00472132 Code(s): R53.1 - WEAKNESS Status: Acute Priority: High Current Visit: Yes (6) Atrial fibrillation with RVR SNOMED Code(s): 723288933752761 Code(s): I48.91 - UNSPECIFIED ATRIAL FIBRILLATION Status: Resolved Priority: High Current Visit: Yes (7) Cellulitis SNOMED Code(s): 932056912 Code(s): L03.90 - CELLULITIS, UNSPECIFIED Status: Acute Priority: High Current Visit: Yes Qualifiers: Laterality: left - Problem List Review Problem List Initiated/Reviewed/Updated: Yes - My Orders Last 24 Hours: My Active Orders 11/30/18 08:00 Omeprazole 40 mg PO BID 11/30/18 20:00 cefTRIAXone [Rocephin] 1 gm Sodium Chloride 0.9% [Normal Saline] 50 ml IV Q24H 12/01/18 05:11 CBC WITH AUTO DIFF [HEME] AM COMPREHENSIVE METABOLIC PN,CMP [CHEM] AM - Plan Plan:: Patient will continue on current rate control of Atrial fibrillation. We will continue to monitor with PT/OT for his exercise tolerance. He is extremely weak and unable to get up without assistance. Continue telemetry at this time. Patient has improved rate control and is around 80's but does have frequent increases in pulse - we may have to titrate his medications for rate control. 11/29/18 Cellulitis - improved scrotal pain and erythema. We will continue Rocephin for at least 3 more days. Atrial Fib with RVR - rate controlled. Continue metoprolol at this time. Weakness - f/u with PT at this time for plan of care but will need at least 2-3 weeks for strengthening and ambulation. PT recommendation for swing bed rehabilitation Skilled PT 5x/wk for 1 week - OT evaluated and recommend 3 wks of therapy. First week for complete grooming and setup assistance.. Second and third week for complete total body dressing independence/mod indep. and for ability to complete mobility /transfer independently. Patient labs ordered and f/u in am. Continue telemetry at this time to monitor for paroxysmal atrial fibrillation or reversion to atrial fib. 11/30/18 Continued swelling and redness of the enlarged scrotum. Cellulitis - we will continue current Rocephin IV. Patient's A-fib has reverted - d/c telemetry. Patient still has issues with ADL's - we will need to reassess and continue PT/ OT - he has difficulty with using commode and holding urinal. He has difficulty with basic hygiene and tasks. Lipase elevation resolved. We must monitor Hemoglobin due to a slow decrease and worsening anemia.
[2018-11-30] MEDS ORDERED: cefTRIAXone 1 GM in Sodium Chloride 0.9% 50 ML IV SCH (20:00)
[2018-12-01] MEDS: Sodium Chloride 0.9% 1,000 ML IV SCH (04:18)
[2018-12-01] MEDS: Levothyroxine 112 MCG Tab PO SCH (07:47)
[2018-12-01] MEDS: Aspirin 81 MG Tab.Chew PO SCH (07:47)
[2018-12-01] MEDS: Metoprolol Tartrate 50 MG Tab PO SCH (07:47)
[2018-12-01] MEDS: Omeprazole 20 MG Cap.CR PO SCH (07:47)
[2018-12-01] MEDS: Tamsulosin 0.4 MG Cap.ER PO SCH (07:48)
--- NOTE | 2018-12-01 10:12 | PCM.PN ---
- General Info Date of Service: 12/01/18 - Patient Data Vitals - Most Recent: Last Vital Signs Temp 36.7 C 12/01/18 07:51 Pulse 80 12/01/18 07:51 Resp 18 12/01/18 07:51 BP 131/65 12/01/18 07:51 Pulse Ox 94 L 12/01/18 07:51 Weight - Most Recent: 68.039 kg I&O - Last 24 Hours: Intake & Output 11/30/18 12/01/18 12/01/18 22:59 06:59 14:59 Intake Total 1746 1170 Output Total 950 1400 Balance 796 -230 Lab Results Last 24 Hours: Laboratory Results - last 24 hr 12/01/18 12/01/18 Range/Units 07:40 07:40 WBC 11.3 H (4.0-11.0) K/uL RBC 3.37 L (4.50-6.50) M/uL Hgb 9.6 L (13.0-18.0) g/dL Hct 30.3 L (40.0-54.0) % MCV 90 (76-96) fL MCH 28.5 (27.0-32.0) pg MCHC 31.7 (31.0-35.0) g/dL RDW 13.4 (11.0-16.0) % Plt Count 275 D (150-400) K/uL MPV 12.1 H (6.0-10.0) fL Neut % (Auto) 81.4 H (45.0-70.0) % Lymph % (Auto) 3.5 L (20.0-40.0) % [place] % (Auto) 12.0 H (3.0-10.0) % Eos % (Auto) 2.7 (1.0-5.0) % Baso % (Auto) 0.4 (0.0-0.5) % Neut # (Auto) 9.19 H (2.00-7.50) K/uL Lymph # (Auto) 0.40 L (1.50-4.00) K/uL [place] # (Auto) 1.36 H (0.20-0.80) K/uL Eos # (Auto) 0.30 (0.04-0.40) K/uL Baso # (Auto) 0.05 (0.02-0.10) K/uL Sodium 139 (136-145) mmol/L Potassium 4.0 (3.5-5.1) mmol/L Chloride 104 (98-107) mmol/L Carbon Dioxide 27.3 (21.0-32.0) mmol/L Anion Gap 11.7 (5.0-15.0) mmol/L BUN 10 (8-26) mg/dL Creatinine 1.22 (0.70-1.30) mg/dL Est Cr Clr Drug Dosing 48.02 mL/min Estimated GFR (MDRD) 57 L (>60) MLS/MIN BUN/Creatinine Ratio 8.2 (6-25) Glucose 137 H (74-100) mg/dL Calcium 7.4 L (8.5-10.1) mg/dL Total Bilirubin 0.3 (0.0-1.0) mg/dL AST 21 (15-37) U/L ALT 23 (12-78) U/L Alkaline Phosphatase 61 (46-116) U/L Total Protein 5.4 L (6.4-8.2) g/dL Albumin 1.4 L (3.4-5.0) g/dL Globulin 4.0 (2.2-4.2) g/dL Albumin/Globulin Ratio 0.4 L (0.8-2.0) Med Orders - Current: Current Medications Aspirin (Aspirin) 81 mg PO DAILY [facility] Last Admin: 12/01/18 07:47 Dose: 81 mg Sodium Chloride (Normal Saline) 1,000 mls @ 85 mls/hr IV ASDIRECTED [facility] Last Admin: 12/01/18 04:18 Dose: 85 mls/hr Ceftriaxone Sodium 1 gm/ (Sodium Chloride) 50 mls @ 200 mls/hr IV Q24H [facility] Last Admin: 11/30/18 20:20 Dose: 200 mls/hr Levothyroxine Sodium (Levothyroxine) 112 mcg PO DAILY [facility] Last Admin: 12/01/18 07:47 Dose: 112 mcg Metoprolol Tartrate (Lopressor) 50 mg PO BID [facility] Last Admin: 12/01/18 07:47 Dose: 50 mg Non-Formulary Medication (Lecithin [Lecithin]) 1,200 mg PO DAILY [facility] Omeprazole (Omeprazole) 40 mg PO BID [facility] Last Admin: 12/01/18 07:47 Dose: 40 mg Sodium Chloride (Saline Flush) 10 ml FLUSH ASDIRECTED PRN PRN Reason: Keep Vein Open Last Admin: 11/27/18 15:36 Dose: 10 ml Tamsulosin HCl (Flomax) 0.4 mg PO DAILY [facility] Last Admin: 12/01/18 07:48 Dose: 0.4 mg Discontinued Medications Ceftriaxone Sodium 1 gm/ (Sodium Chloride) 50 mls @ 200 mls/hr IV Q24H [facility] Ceftriaxone Sodium 1 gm/ (Sodium Chloride) 50 mls @ 200 mls/hr IV Q24H [facility] Stop: 12/05/18 20:16 Last Admin: 11/29/18 19:46 Dose: 200 mls/hr Ceftriaxone Sodium 1 gm/ (Sodium Chloride) 50 mls @ 200 mls/hr IV Q24H [facility] Stop: 12/05/18 20:16 Last Admin: 11/29/18 23:16 Dose: Not Given Levothyroxine Sodium (Synthroid) 100 mcg PO DAILY [facility] Metoprolol Tartrate (Lopressor) Confirm Administered Dose 50 mg .ROUTE .STK-MED ONE Stop: 11/27/18 13:31 Last Admin: 11/27/18 13:31 Dose: 50 mg Metoprolol Tartrate (Lopressor) 50 mg PO ONETIME ONE Stop: 11/27/18 13:35 Last Admin: 11/27/18 13:34 Dose: Not Given Metoprolol Tartrate (Lopressor) 5 mg IVPUSH ONETIME ONE Stop: 11/27/18 17:32 Last Admin: 11/27/18 17:41 Dose: 5 mg Metoprolol Tartrate (Lopressor) Confirm Administered Dose 5 mg .ROUTE .STK-MED ONE Stop: 11/27/18 17:42 Last Admin: 11/27/18 17:49 Dose: Not Given Omeprazole (Omeprazole) 40 mg PO BID [facility] Last Admin: 11/29/18 19:44 Dose: 40 mg Omeprazole (Omeprazole) Confirm Administered Dose 40 mg .ROUTE .STK-MED ONE Stop: 11/27/18 20:46 Last Admin: 11/28/18 08:41 Dose: 40 mg Omeprazole (Omeprazole) Confirm Administered Dose 40 mg .ROUTE .STK-MED ONE Stop: 11/28/18 08:13 Last Admin: 11/28/18 08:45 Dose: Not Given Omeprazole (Omeprazole) Confirm Administered Dose 40 mg .ROUTE [facility] ONE Stop: 11/28/18 19:48 Last Admin: 11/28/18 21:04 Dose: Not Given Omeprazole (Omeprazole) Confirm Administered Dose 40 mg .ROUTE [facility] ONE Stop: 11/29/18 07:52 Last Admin: 11/29/18 18:34 Dose: Not Given Omeprazole (Omeprazole) Confirm Administered Dose 40 mg .ROUTE [facility] ONE Stop: 11/29/18 19:36 Last Admin: 11/29/18 19:44 Dose: Not Given - Problem List & Annotations (1) Elevated lipase SNOMED Code(s): 317994144 Code(s): R74.8 - ABNORMAL LEVELS OF OTHER SERUM ENZYMES Status: Resolved Priority: High Current Visit: Yes (2) Anemia SNOMED Code(s): 558966285 Code(s): D64.9 - ANEMIA, UNSPECIFIED Status: Acute Priority: High Current Visit: Yes Qualifiers: Anemia type: unspecified type Qualified Code(s): D64.9 - Anemia, unspecified (3) Hypothyroidism SNOMED Code(s): 93309590 Code(s): E03.9 - HYPOTHYROIDISM, UNSPECIFIED Status: Acute Priority: High Current Visit: Yes Qualifiers: Hypothyroidism type: other Qualified Code(s): E03.8 - Other specified hypothyroidism (4) Renal dysfunction Status: Resolved Priority: High Current Visit: Yes (5) Weakness SNOMED Code(s): 64973053 Code(s): R53.1 - WEAKNESS Status: Acute Priority: High Current Visit: Yes (6) Atrial fibrillation with RVR SNOMED Code(s): 186936347653481 Code(s): I48.91 - UNSPECIFIED ATRIAL FIBRILLATION Status: Resolved Priority: High Current Visit: Yes (7) Cellulitis SNOMED Code(s): 506099562 Code(s): L03.90 - CELLULITIS, UNSPECIFIED Status: Acute Priority: High Current Visit: Yes Qualifiers: Laterality: left - My Orders Last 24 Hours: My Active Orders 11/30/18 20:00 cefTRIAXone [Rocephin] 1 gm Sodium Chloride 0.9% [Normal Saline] 50 ml IV Q24H - Plan Plan:: Patient will continue on current rate control of Atrial fibrillation. We will continue to monitor with PT/OT for his exercise tolerance. He is extremely weak and unable to get up without assistance. Continue telemetry at this time. Patient has improved rate control and is around 80's but does have frequent increases in pulse - we may have to titrate his medications for rate control. 11/29/18 Cellulitis - improved scrotal pain and erythema. We will continue Rocephin for at least 3 more days. Atrial Fib with RVR - rate controlled. Continue metoprolol at this time. Weakness - f/u with PT at this time for plan of care but will need at least 2-3 weeks for strengthening and ambulation. PT recommendation for swing bed rehabilitation Skilled PT 5x/wk for 1 week - OT evaluated and recommend 3 wks of therapy. First week for complete grooming and setup assistance.. Second and third week for complete total body dressing independence/mod indep. and for ability to complete mobility /transfer independently. Patient labs ordered and f/u in am. Continue telemetry at this time to monitor for paroxysmal atrial fibrillation or reversion to atrial fib. 11/30/18 Continued swelling and redness of the enlarged scrotum. Cellulitis - we will continue current Rocephin IV. Patient's A-fib has reverted - d/c telemetry. Patient still has issues with ADL's - we will need to reassess and continue PT/ OT - he has difficulty with using commode and holding urinal. He has difficulty with basic hygiene and tasks. Lipase elevation resolved. We must monitor Hemoglobin due to a slow decrease and worsening anemia.
--- NOTE | 2018-12-01 11:34 | PCM.DCSUM1 ---
Discharge Summary - Discharge Data Discharge Date: 12/01/18 Discharge Disposition: DC/Tfer W/I Hosp To Swing 61 Condition: Good - Discharge Diagnosis/Problem(s) (1) Elevated lipase SNOMED Code(s): 109613032 ICD Code: R74.8 - ABNORMAL LEVELS OF OTHER SERUM ENZYMES Status: Resolved Priority: High Current Visit: Yes (2) Anemia SNOMED Code(s): 390558371 ICD Code: D64.9 - ANEMIA, UNSPECIFIED Status: Acute Priority: High Current Visit: Yes Qualifiers: Anemia type: unspecified type Qualified Code(s): D64.9 - Anemia, unspecified (3) Hypothyroidism SNOMED Code(s): 14022106 ICD Code: E03.9 - HYPOTHYROIDISM, UNSPECIFIED Status: Acute Priority: High Current Visit: Yes Qualifiers: Hypothyroidism type: other Qualified Code(s): E03.8 - Other specified hypothyroidism (4) Renal dysfunction Status: Resolved Priority: High Current Visit: Yes (5) Weakness SNOMED Code(s): 28603700 ICD Code: R53.1 - WEAKNESS Status: Acute Priority: High Current Visit: Yes (6) Atrial fibrillation with RVR SNOMED Code(s): 190507709594959 ICD Code: I48.91 - UNSPECIFIED ATRIAL FIBRILLATION Status: Resolved Priority: High Current Visit: Yes (7) Cellulitis SNOMED Code(s): 058118236 ICD Code: L03.90 - CELLULITIS, UNSPECIFIED Status: Acute Priority: High Current Visit: Yes Qualifiers: Laterality: left - Patient Summary/Data Consults: Consultations 11/28/18 09:32 Consult to Physical Therapy [PT Evaluation and Treatment] [CONS] Routine Please Evaluate and Treat. PT Reason for Consult: Strengthening This query below is only for informational purposes and is not editable. Admission Diagnosis/Problem: Atrial fibrillation with rapid ventricular response 11/28/18 09:33 Consult to Occupational Therapy [OT Evaluation and Treatment] [CONS] Routine Please Evaluate and Treat. OT Reason for Consult: Strengthening This query below is only for informational purposes and is not editable. Admission Diagnosis/Problem: Atrial fibrillation with rapid ventricular response - Discharge Plan Home Medications: Home Meds Aspirin 81 mg PO DAILY 11/27/18 [History] Lecithin 1,200 mg PO DAILY 11/27/18 [History] Levothyroxine [Synthroid] 100 mcg PO DAILY 11/27/18 [History] Metoprolol Tartrate 50 mg PO BID 11/27/18 [History] Omeprazole 40 mg PO BID 11/27/18 [History] Tamsulosin [Flomax] 0.4 mg PO DAILY 11/27/18 [History] Forms: ED Department Discharge Referrals: PCP,None [Primary Care Provider] - - Discharge Summary/Plan Comment DC Time >30 min.: Yes Discharge Summary/Plan Comment: Patient to be discharged to Swing bed and rehabilitation. He has improved ambulation but continues to have difficulty with ADL's. I hope that his rehabilitation time is enough to improve his independence. We will continue his Rocephin and consider changing to oral antibiotics. F/u with PT/OT for progress and possible home care visits. - Patient Data Vitals - Most Recent: Last Vital Signs Temp 36.7 C 12/01/18 07:51 Pulse 80 12/01/18 07:51 Resp 18 12/01/18 07:51 BP 131/65 12/01/18 07:51 Pulse Ox 94 L 12/01/18 07:51 Weight - Most Recent: 68.039 kg I&O - Last 24 hours: Intake & Output 11/30/18 12/01/18 12/01/18 22:59 06:59 14:59 Intake Total 1746 1170 Output Total 950 1400 Balance 796 -230 Lab Results - Last 24 hrs: Laboratory Results - last 24 hr 12/01/18 12/01/18 Range/Units 07:40 07:40 WBC 11.3 H (4.0-11.0) K/uL RBC 3.37 L (4.50-6.50) M/uL Hgb 9.6 L (13.0-18.0) g/dL Hct 30.3 L (40.0-54.0) % MCV 90 (76-96) fL MCH 28.5 (27.0-32.0) pg MCHC 31.7 (31.0-35.0) g/dL RDW 13.4 (11.0-16.0) % Plt Count 275 D (150-400) K/uL MPV 12.1 H (6.0-10.0) fL Neut % (Auto) 81.4 H (45.0-70.0) % Lymph % (Auto) 3.5 L (20.0-40.0) % [place] % (Auto) 12.0 H (3.0-10.0) % Eos % (Auto) 2.7 (1.0-5.0) % Baso % (Auto) 0.4 (0.0-0.5) % Neut # (Auto) 9.19 H (2.00-7.50) K/uL Lymph # (Auto) 0.40 L (1.50-4.00) K/uL [place] # (Auto) 1.36 H (0.20-0.80) K/uL Eos # (Auto) 0.30 (0.04-0.40) K/uL Baso # (Auto) 0.05 (0.02-0.10) K/uL Sodium 139 (136-145) mmol/L Potassium 4.0 (3.5-5.1) mmol/L Chloride 104 (98-107) mmol/L Carbon Dioxide 27.3 (21.0-32.0) mmol/L Anion Gap 11.7 (5.0-15.0) mmol/L BUN 10 (8-26) mg/dL Creatinine 1.22 (0.70-1.30) mg/dL Est Cr Clr Drug Dosing 48.02 mL/min Estimated GFR (MDRD) 57 L (>60) MLS/MIN BUN/Creatinine Ratio 8.2 (6-25) Glucose 137 H (74-100) mg/dL Calcium 7.4 L (8.5-10.1) mg/dL Total Bilirubin 0.3 (0.0-1.0) mg/dL AST 21 (15-37) U/L ALT 23 (12-78) U/L Alkaline Phosphatase 61 (46-116) U/L Total Protein 5.4 L (6.4-8.2) g/dL Albumin 1.4 L (3.4-5.0) g/dL Globulin 4.0 (2.2-4.2) g/dL Albumin/Globulin Ratio 0.4 L (0.8-2.0) Med Orders - Current: Current Medications Aspirin (Aspirin) 81 mg PO DAILY [facility] Last Admin: 12/01/18 07:47 Dose: 81 mg Sodium Chloride (Normal Saline) 1,000 mls @ 85 mls/hr IV ASDIRECTED [facility] Last Admin: 12/01/18 04:18 Dose: 85 mls/hr Ceftriaxone Sodium 1 gm/ (Sodium Chloride) 50 mls @ 200 mls/hr IV Q24H [facility] Last Admin: 11/30/18 20:20 Dose: 200 mls/hr Levothyroxine Sodium (Levothyroxine) 112 mcg PO DAILY [facility] Last Admin: 12/01/18 07:47 Dose: 112 mcg Metoprolol Tartrate (Lopressor) 50 mg PO BID [facility] Last Admin: 12/01/18 07:47 Dose: 50 mg Non-Formulary Medication (Lecithin [Lecithin]) 1,200 mg PO DAILY [facility] Omeprazole (Omeprazole) 40 mg PO BID [facility] Last Admin: 12/01/18 07:47 Dose: 40 mg Sodium Chloride (Saline Flush) 10 ml FLUSH ASDIRECTED PRN PRN Reason: Keep Vein Open Last Admin: 11/27/18 15:36 Dose: 10 ml Tamsulosin HCl (Flomax) 0.4 mg PO DAILY [facility] Last Admin: 12/01/18 07:48 Dose: 0.4 mg Discontinued Medications Ceftriaxone Sodium 1 gm/ (Sodium Chloride) 50 mls @ 200 mls/hr IV Q24H [facility] Ceftriaxone Sodium 1 gm/ (Sodium Chloride) 50 mls @ 200 mls/hr IV Q24H [facility] Stop: 12/05/18 20:16 Last Admin: 11/29/18 19:46 Dose: 200 mls/hr Ceftriaxone Sodium 1 gm/ (Sodium Chloride) 50 mls @ 200 mls/hr IV Q24H [facility] Stop: 12/05/18 20:16 Last Admin: 11/29/18 23:16 Dose: Not Given Levothyroxine Sodium (Synthroid) 100 mcg PO DAILY [facility] Metoprolol Tartrate (Lopressor) Confirm Administered Dose 50 mg .ROUTE .STK-MED ONE Stop: 11/27/18 13:31 Last Admin: 11/27/18 13:31 Dose: 50 mg Metoprolol Tartrate (Lopressor) 50 mg PO ONETIME ONE Stop: 11/27/18 13:35 Last Admin: 11/27/18 13:34 Dose: Not Given Metoprolol Tartrate (Lopressor) 5 mg IVPUSH ONETIME ONE Stop: 11/27/18 17:32 Last Admin: 11/27/18 17:41 Dose: 5 mg Metoprolol Tartrate (Lopressor) Confirm Administered Dose 5 mg .ROUTE .[place] ONE Stop: 11/27/18 17:42 Last Admin: 11/27/18 17:49 Dose: Not Given Omeprazole (Omeprazole) 40 mg PO BID [facility] Last Admin: 11/29/18 19:44 Dose: 40 mg Omeprazole (Omeprazole) Confirm Administered Dose 40 mg .ROUTE .[place] ONE Stop: 11/27/18 20:46 Last Admin: 11/28/18 08:41 Dose: 40 mg Omeprazole (Omeprazole) Confirm Administered Dose 40 mg .ROUTE .[place] ONE Stop: 11/28/18 08:13 Last Admin: 11/28/18 08:45 Dose: Not Given Omeprazole (Omeprazole) Confirm Administered Dose 40 mg .ROUTE .[place] ONE Stop: 11/28/18 19:48 Last Admin: 11/28/18 21:04 Dose: Not Given Omeprazole (Omeprazole) Confirm Administered Dose 40 mg .ROUTE .[place] ONE Stop: 11/29/18 07:52 Last Admin: 11/29/18 18:34 Dose: Not Given Omeprazole (Omeprazole) Confirm Administered Dose 40 mg .ROUTE .[place] ONE Stop: 11/29/18 19:36 Last Admin: 11/29/18 19:44 Dose: Not Given
== END 2018-12-01 10:34 | disposition swing bed (61) | DRG 310 ==
LOC: LB.ED 11:07 → INTOOBSV 14:26 → UNDOADMOB 14:26 → LB.MS 14:26 → OBSVTOIN 16:41
PROVIDERS: ADMIT Family Medicine; ATTEND Family Medicine
DX: I48.91 Unspecified atrial fibrillation (principal); R06.02 Shortness of breath; R53.1 Weakness; N40.0 Benign prostatic hyperplasia without lower urinary tract symptoms; E03.9 Hypothyroidism, unspecified; D64.9 Anemia, unspecified; R74.8 Abnormal levels of other serum enzymes; N28.9 Disorder of kidney and ureter, unspecified; N49.2 Inflammatory disorders of scrotum; K40.90 Unilateral inguinal hernia, without obstruction or gangrene, not specified as recurrent; Z79.899 Other long term (current) drug therapy; Z79.82 Long term (current) use of aspirin; Z79.890 Hormone replacement therapy; Z86.73 Personal history of transient ischemic attack (TIA), and cerebral infarction without residual deficits
CPT/HCPCS: 36415; 36600; 80053; 81001; 82803; 83690; 83880; 84443; 84484; 85025; 93005; 99285; A0425; A0429; A9270; 97110-GO; 97110-GP; 97161-GP; 97165-GO; 97530-GP; J0696; J3490; J7030; J7050

== ENCOUNTER 2018-12-01 10:34 | Inpatient (IN) | payer MEDICARE ==
[2018-12-01] MEDS ORDERED: Tuberculin, PPD 5 Units/0.1 ML 1 ML MDV IDERM ONE (11:35)
--- NOTE | 2018-12-01 11:44 | PCM.HP ---
H&P History of Present Illness - General Date of Service: 12/01/18 Admit Problem/Dx: Admission Diagnosis/Problem Admission Diagnosis/Problem Weakness Source of Information: Patient, Family, Old Records, RN Notes Reviewed History Limitations: Reports: No Limitations - History of Present Illness Initial Comments - Free Text/Narative: This is a 78yo M with recent dehydration, weakness, cellulitis and Afib- RVR admitted to swing bed for rehabilitation. He has improved strength and energy at this time and does want to progress and go home. He denies any current concerns but staff do note that he has difficulty with routine daily activities like getting up and going to the bathroom. He is weak and still recovering from his cellulitis and does require a few more days of IV antibiotics. Duration of Symptoms: Reports: Constant Location: Reports: Generalized Improves with: Reports: Medication Associated Symptoms: Reports: No Other Symptoms - Related Data Allergies/Adverse Reactions: Allergies Allergy/AdvReac Type Severity Reaction Status Date / Time No Known Allergies Allergy Verified 11/27/18 11:33 Home Medications: Home Meds Aspirin 81 mg PO DAILY 11/27/18 [History] Lecithin 1,200 mg PO DAILY 11/27/18 [History] Levothyroxine [Synthroid] 100 mcg PO DAILY 11/27/18 [History] Metoprolol Tartrate 50 mg PO BID 11/27/18 [History] Omeprazole 40 mg PO BID 11/27/18 [History] Tamsulosin [Flomax] 0.4 mg PO DAILY 11/27/18 [History] Past Medical History HEENT History: Reports: Cataract Cardiovascular History: Reports: Afib, Other (See Below) Other Cardiovascular History: 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 Exam - Exam Exam: See Below - Exam Quality Assessment: Supplemental Oxygen General: Alert, Oriented, Cooperative HEENT: PERRLA, Conjunctiva Clear, EACs Clear Neck: Supple, Trachea Midline Lungs: Clear to Auscultation, Normal Respiratory Effort Cardiovascular: Regular Rate, Regular Rhythm GI/Abdominal Exam: Normal Bowel Sounds, Soft, Non-Tender (Male) Exam: Scrotal Swelling, Scrotum Tenderness (L), Scrotum Tenderness (R) Back Exam: Normal Inspection Extremities: Normal Inspection Neurological: Cranial Nerves Intact, Reflexes Equal Bilateral, Other (weakness - generalized whole body) - Problem List (1) Anemia SNOMED Code(s): 751471345 ICD Code: D64.9 - ANEMIA, UNSPECIFIED Status: Acute Priority: High Qualifiers: Anemia type: unspecified type Qualified Code(s): D64.9 - Anemia, unspecified (2) Cellulitis SNOMED Code(s): 655067603 ICD Code: L03.90 - CELLULITIS, UNSPECIFIED Status: Acute Priority: High Qualifiers: Laterality: left (3) Weakness SNOMED Code(s): 05409637 ICD Code: R53.1 - WEAKNESS Status: Acute Priority: High (4) Atrial fibrillation with RVR SNOMED Code(s): 401178032505368 ICD Code: I48.91 - UNSPECIFIED ATRIAL FIBRILLATION Status: Resolved Priority: High (5) Duodenal ulceration SNOMED Code(s): 49678586 ICD Code: K26.9 - DUODENAL ULCER, UNSP ACUTE OR CHRONIC, W/O HEMOR OR PERF Status: Resolved Problem List Initiated/Reviewed/Updated: Yes Orders Last 24hrs: Active Orders 24 hr Category Date Time Status Patient Status [ADT] Routine ADT 12/01/18 11:35 Ordered Consult to Bristle Machine Operator [CONS] Routine Cons 12/01/18 11:35 Ordered Consult to Home Health [CONS] Routine Cons 12/01/18 11:35 Ordered Consult to Infection Prevention [CONS] Routine Cons 12/01/18 11:35 Ordered OT Evaluation and Treatment [CONS] Routine Cons 12/01/18 11:35 Ordered PT Evaluation and Treatment [CONS] Routine Cons 12/01/18 11:35 Ordered Tuberculin, PPD [Aplisol] Med 12/01/18 11:35 Once 5 unit IDERM ONETIME ONE Resuscitation Status Routine Resus Stat 12/01/18 11:35 Ordered Assessment/Plan Comment:: Patient will continue on current IV Rocephin for full 7 days course and then changed to oral meds. Patient will continue with PT/OT at this time and re-evaluate as routine. No change in medications.
[2018-12-01] MEDS ORDERED: Omeprazole 20 MG Cap.CR ONE (19:52)
[2018-12-01] MEDS: Omeprazole 40 MG Cap.CR PO SCH (19:59)
[2018-12-01] MEDS: Metoprolol Tartrate 50 MG Tab PO SCH (20:00)
[2018-12-01] MEDS: Sodium Chloride 0.9% 10 ML Syringe FLUSH SCH (20:15)
[2018-12-01] MEDS: cefTRIAXone 1 GM in Sodium Chloride 0.9% 50 ML IV SCH (20:18)
[2018-12-01] MEDS ORDERED: Sodium Chloride 0.9% 10 ML Syringe FLUSH PRN (20:53)
[2018-12-02] MEDS ORDERED: Omeprazole 20 MG Cap.CR ONE (06:17)
[2018-12-02] MEDS: Levothyroxine 112 MCG Tab PO SCH (06:22)
[2018-12-02] MEDS: Omeprazole 40 MG Cap.CR PO SCH ×2 (06:23→19:22)
[2018-12-02] MEDS ORDERED: Levothyroxine 100 MCG Tab PO SCH (07:00)
[2018-12-02] MEDS ORDERED: LECITHIN 1200 MG PO SCH (08:00)
[2018-12-02] MEDS: Tamsulosin 0.4 MG Cap.ER PO SCH (08:24)
[2018-12-02] MEDS: Aspirin 81 MG Tab.Chew PO SCH (08:24)
[2018-12-02] MEDS: Metoprolol Tartrate 50 MG Tab PO SCH ×2 (08:24→19:22)
[2018-12-02] MEDS ORDERED: Tuberculin, PPD 5 Units/0.1 ML 1 ML MDV IDERM ONE (10:00)
[2018-12-02] MEDS: Sodium Chloride 0.9% 10 ML Syringe FLUSH SCH ×2 (10:22→19:23)
[2018-12-02] MEDS: cefTRIAXone 1 GM in Sodium Chloride 0.9% 50 ML IV SCH (16:45)
[2018-12-03] MEDS ORDERED: Omeprazole 20 MG Cap.CR ONE ×2 (06:08→19:08)
[2018-12-03] MEDS: Levothyroxine 112 MCG Tab PO SCH (06:31)
[2018-12-03] MEDS: Omeprazole 40 MG Cap.CR PO SCH ×2 (06:32→19:34)
[2018-12-03] MEDS: Tamsulosin 0.4 MG Cap.ER PO SCH ×2 (07:47→07:57)
[2018-12-03] MEDS: Aspirin 81 MG Tab.Chew PO SCH ×2 (07:47→07:57)
[2018-12-03] MEDS: Metoprolol Tartrate 50 MG Tab PO SCH ×2 (07:48→19:34)
[2018-12-03] MEDS: Sodium Chloride 0.9% 10 ML Syringe FLUSH SCH ×2 (07:49→19:33)
[2018-12-03] MEDS: cefTRIAXone 1 GM in Sodium Chloride 0.9% 50 ML IV SCH (17:31)
[2018-12-04] MEDS ORDERED: Omeprazole 20 MG Cap.CR ONE (06:16)
[2018-12-04] MEDS: Omeprazole 40 MG Cap.CR PO SCH (06:19)
[2018-12-04] MEDS: Levothyroxine 112 MCG Tab PO SCH (06:19)
[2018-12-04] MEDS: Tamsulosin 0.4 MG Cap.ER PO SCH (08:02)
[2018-12-04] MEDS: Aspirin 81 MG Tab.Chew PO SCH (08:02)
[2018-12-04] MEDS: Metoprolol Tartrate 50 MG Tab PO SCH ×2 (08:03→19:57)
[2018-12-04] MEDS: Sodium Chloride 0.9% 10 ML Syringe FLUSH SCH ×2 (08:22→19:58)
[2018-12-04] MEDS: cefTRIAXone 1 GM in Sodium Chloride 0.9% 50 ML IV SCH (18:00)
[2018-12-04] MEDS: Omeprazole 20 MG Cap.CR PO SCH (19:57)
[2018-12-05] MEDS: Levothyroxine 112 MCG Tab PO SCH (06:40)
[2018-12-05] MEDS: Omeprazole 20 MG Cap.CR PO SCH ×2 (06:41→19:45)
[2018-12-05] MEDS: Metoprolol Tartrate 50 MG Tab PO SCH ×2 (08:13→19:45)
[2018-12-05] MEDS: Sodium Chloride 0.9% 10 ML Syringe FLUSH SCH ×2 (08:14→19:45)
[2018-12-05] MEDS: Tamsulosin 0.4 MG Cap.ER PO SCH (08:14)
[2018-12-05] MEDS: Aspirin 81 MG Tab.Chew PO SCH (08:14)
[2018-12-05] MEDS: cefTRIAXone 1 GM in Sodium Chloride 0.9% 50 ML IV SCH (16:49)
[2018-12-06] MEDS: Levothyroxine 112 MCG Tab PO SCH (07:27)
[2018-12-06] MEDS: Omeprazole 20 MG Cap.CR PO SCH (07:27)
[2018-12-06] MEDS: Metoprolol Tartrate 50 MG Tab PO SCH (08:20)
[2018-12-06] MEDS: Aspirin 81 MG Tab.Chew PO SCH (08:20)
[2018-12-06] MEDS: Tamsulosin 0.4 MG Cap.ER PO SCH (08:20)
[2018-12-06] MEDS: Sodium Chloride 0.9% 10 ML Syringe FLUSH SCH (08:22)
--- NOTE | 2018-12-06 09:58 | PCM.DCSUM1 ---
Discharge Summary - Hospital Course Free Text/Narrative:: Pt is a 78 year old male who was admitted t swing bed level of care for OT and PT . Also he has been on Rocephin IV for his scrotal cellulitis. Finished his antibiotic course.He has been afebrile and has no more scrotal discomfort. Also OT and pt feels that he has attained maximum potential. Pt claims he feels fine , has not been dizzy or weak. He does use walker for ambulation. No fever or chills. No other complaints. Brief History: Kindly see H&P Diagnosis: Stroke: No Modified [place] Scale: No Symptoms at All Modified [place] Scale Score: 0 - Discharge Data Discharge Date: 12/06/18 Discharge Disposition: Home, Self-Care 01 Condition: Good - Patient Summary/Data Consults: Consultations 12/01/18 11:35 Consult to Mother Tester [CONS] Routine Comment: Physician Instructions: Quantity: Consult to Home Health [CONS] Routine Comment: Physician Instructions: Consult to Infection Prevention [CONS] Routine Comment: Physician Instructions: OT Evaluation and Treatment [CONS] Routine Please Evaluate and Treat. OT Reason for Consult: ADL's This query below is only for informational purposes and is not editable. Admission Diagnosis/Problem: Weakness PT Evaluation and Treatment [CONS] Routine Please Evaluate and Treat. PT Reason for Consult: Ambulation This query below is only for informational purposes and is not editable. Admission Diagnosis/Problem: Weakness - Patient Instructions Diet: Regular Diet as Tolerated Fluid Restriction: 1500 mL Activity: As Tolerated Showering/Bathing: May Shower - Discharge Plan *PRESCRIPTION DRUG MONITORING PROGRAM REVIEWED*: Not Applicable *COPY OF PRESCRIPTION DRUG MONITORING REPORT IN PATIENT EUFEMIA: Not Applicable Home Medications: Home Meds Aspirin 81 mg PO DAILY 11/27/18 [History] Lecithin 1,200 mg PO DAILY 11/27/18 [History] Levothyroxine [Synthroid] 100 mcg PO DAILY 11/27/18 [History] Metoprolol Tartrate 50 mg PO BID 11/27/18 [History] Omeprazole 40 mg PO BID 11/27/18 [History] Tamsulosin [Flomax] 0.4 mg PO DAILY 11/27/18 [History] Levothyroxine 112 mcg PO ACBREAKFAST tablet 12/06/18 [Rx] Patient Handouts: Fall Prevention in the Home, Adult, [id number] - Discharge Summary/Plan Comment DC Time >30 min.: Yes Discharge Summary/Plan Comment: Pt is okay to be discharged. i have discussed with him about his large B/l inguinal hernia. HE does not have any complication now. But there is a chance that they can get obstructed or strangulated, which can be life threatening emergency offered surgical referral as out patient. Pt agree to have out patient evaluation. - General Info Date of Service: 12/06/18 Functional Status: Reports: Pain Controlled, Tolerating Diet, Ambulating, Urinating - Review of Systems General: Denies: Fever, Chills HEENT: Denies: Ear Pain, Headaches, Sore Throat, Rhinitis Pulmonary: Denies: Cough, Sputum Cardiovascular: Denies: Chest Pain, Lightheadedness Gastrointestinal: Reports: Flatus. Denies: Abdominal Pain, Diarrhea, Nausea, Vomiting Genitourinary: Denies: Dysuria, Frequency Musculoskeletal: Denies: Joint Pain, Joint Swelling Skin: Denies: Bruising, Pruritis, Rash Neurological: Denies: Confusion, Dizziness, Headache, Numbness, Tingling - Patient Data Vitals - Most Recent: Last Vital Signs Temp 98.2 F 12/06/18 07:55 Pulse 76 12/06/18 08:20 Resp 18 12/06/18 07:55 BP 138/73 12/06/18 08:20 Pulse Ox 96 12/06/18 07:55 Weight - Most Recent: 68.402 kg I&O - Last 24 hours: Intake & Output 12/05/18 12/06/18 12/06/18 22:59 06:59 14:59 Intake Total 50 Balance 50 Med Orders - Current: Current Medications Aspirin (Aspirin) 81 mg PO DAILY [facility] Last Admin: 12/06/18 08:20 Dose: 81 mg Levothyroxine Sodium (Levothyroxine) 112 mcg PO ACBREAKFAST [facility] Last Admin: 12/06/18 07:27 Dose: 112 mcg Metoprolol Tartrate (Lopressor) 50 mg PO BID [facility] Last Admin: 12/06/18 08:20 Dose: 50 mg Omeprazole (Omeprazole) 40 mg PO BIDAC [facility] Last Admin: 12/06/18 07:27 Dose: 40 mg Sodium Chloride (Saline Flush) 10 ml FLUSH BID [facility] Last Admin: 12/06/18 08:22 Dose: 10 ml Sodium Chloride (Saline Flush) 10 ml FLUSH SEECOMMENT PRN PRN Reason: Keep Vein Open Last Admin: 12/01/18 20:50 Dose: 10 ml Tamsulosin HCl (Flomax) 0.4 mg PO DAILY [facility] Last Admin: 12/06/18 08:20 Dose: 0.4 mg Discontinued Medications Ceftriaxone Sodium 1 gm/ (Sodium Chloride) 50 mls @ 200 mls/hr IV Q24H [facility] Stop: 12/05/18 17:01 Last Admin: 12/05/18 16:49 Dose: 200 mls/hr Levothyroxine Sodium (Synthroid) 100 mcg PO ACBREAKFAST [facility] Omeprazole (Omeprazole) 40 mg PO BIDAC [facility] Last Admin: 12/04/18 06:19 Dose: 40 mg Omeprazole (Omeprazole) Confirm Administered Dose 40 mg .ROUTE .STK-MED ONE Stop: 12/01/18 19:53 Last Admin: 12/01/18 19:59 Dose: Not Given Omeprazole (Omeprazole) Confirm Administered Dose 40 [facility] Stop: 12/02/18 06:18 Last Admin: 12/02/18 06:23 Dose: Not Given Omeprazole (Omeprazole) Confirm Administered Dose 40 mg .ROUTE .[place]-MED ONE Stop: 12/03/18 06:09 Last Admin: 12/03/18 06:33 Dose: Not Given Omeprazole (Omeprazole) Confirm Administered Dose 40 mg .ROUTE .[place]-MED ONE Stop: 12/03/18 19:09 Last Admin: 12/03/18 19:34 Dose: Not Given Omeprazole (Omeprazole) Confirm Administered Dose 40 mg .ROUTE .[place]-MED ONE Stop: 12/04/18 06:17 Last Admin: 12/04/18 06:21 Dose: Not Given Tuberculin PPD (Aplisol) 5 unit IDERM ONETIME ONE Stop: 12/02/18 10:01 Last Admin: 12/02/18 12:58 Dose: 5 unit - Exam General: Reports: Alert, Oriented HEENT: Reports: Pupils Equal, Pupils Reactive, EOMI, Mucous Membr. Moist/[place] Neck: Reports: Supple Lungs: Reports: Clear to Auscultation, Normal Respiratory Effort Cardiovascular: Reports: Regular Rate, Regular Rhythm GI/Abdominal Exam: Normal Bowel Sounds, Soft, Non-Tender, No Organomegaly, Hernia (Pt do have large B/l inguinal hernia, easily reducible . + cough impulse.) Psy/Mental Status: Reports: Alert, Normal Mood
== END 2018-12-06 11:00 | disposition home or self-care (01) | DRG 948 ==
LOC: LB.MS 11:35
PROVIDERS: ADMIT Family Medicine; ATTEND Family Medicine
DX: R53.1 Weakness (principal); N49.2 Inflammatory disorders of scrotum; I48.91 Unspecified atrial fibrillation; N40.0 Benign prostatic hyperplasia without lower urinary tract symptoms; E03.9 Hypothyroidism, unspecified; Z86.73 Personal history of transient ischemic attack (TIA), and cerebral infarction without residual deficits; K40.20 Bilateral inguinal hernia, without obstruction or gangrene, not specified as recurrent; K26.9 Duodenal ulcer, unspecified as acute or chronic, without hemorrhage or perforation; D64.9 Anemia, unspecified; Z79.82 Long term (current) use of aspirin
CPT/HCPCS: 86580; 97110-GO; 97110-GP; 97116-GP; 97530-GP; A9270-GY; J0696; J7050

== ENCOUNTER → 2019-05-24 | Outpatient (CLI) | payer MEDICARE, OTHER | LOC: LB.CLINIC 09:31 | PROVIDERS: ATTEND Family Medicine | DX: E03.9 Hypothyroidism, unspecified (principal); E78.5 Hyperlipidemia, unspecified; D64.9 Anemia, unspecified; I25.10 Atherosclerotic heart disease of native coronary artery without angina pectoris; R73.9 Hyperglycemia, unspecified | CPT/HCPCS: 36415; 80048; 80061; 81003; 82043 ==

== ENCOUNTER → 2019-06-04 | Outpatient (CLI) | payer MEDICARE ==
[2019-06-04 12:22] LABS: HEMOGLOBIN A1C 6.4 % (< 5.7)
== END ==
LOC: LB.CLINIC 11:55
PROVIDERS: ATTEND Family Medicine
DX: D64.9 Anemia, unspecified (principal); I25.10 Atherosclerotic heart disease of native coronary artery without angina pectoris; E78.5 Hyperlipidemia, unspecified; E03.9 Hypothyroidism, unspecified; R73.9 Hyperglycemia, unspecified
CPT/HCPCS: 83036; 85025

== ENCOUNTER 2020-05-05 12:05 | Emergency (ER) | payer MEDICARE ==
[2020-05-05] MEDS ORDERED: Aspirin 81 MG Tab.Chew PO ONE (12:31)
[2020-05-05] MEDS ORDERED: Nitroglycerin 0.4 MG Tab.SL SL PRN (12:31)
[2020-05-05] MEDS ORDERED: Heparin Sodium 5,000 Units/ML Vial IVPUSH ONE (13:03)
[2020-05-05] MEDS ORDERED: Heparin Sodium/D5W 25,000 UNITS/500 ML BAG IV SCH (13:15)
[2020-05-05] MEDS ORDERED: Nitroglycerin/D5W 25 MG/250 ML BOTTLE IV SCH (13:15)
[2020-05-05] MEDS ORDERED: Heparin Sodium 1,000 Units/ML 10 ML MDV ONE (13:34)
--- NOTE | 2020-05-05 13:53 | EDM.PDOC ---
ED HPI GENERAL MEDICAL PROBLEM - General Chief Complaint: Chest Pain Stated Complaint: HIGH BP, HEADACHES, CHEST PAIN Time Seen by Provider: 05/05/20 12:10 Source of Information: Reports: Patient - History of Present Illness INITIAL COMMENTS - FREE TEXT/NARRATIVE: patient woke this AM at 0900 with BP 200s/100ssubsternal chest pain with radiation to back. Denies any arm, jaw pain. Pressure decreased after patient took metoprolol. Upon arrival, patient pain free. Denies N/V/D, SOB, bloody stools. Onset: Today Onset Time: 09:00 Location: Reports: Chest Quality: Reports: Ache Improves with: Reports: None Worsens with: Reports: None Associated Symptoms: Reports: Chest Pain. 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 Gastrointestinal History: Reports: Other (See Below) Other Gastrointestinal History: Hernia bilaterally Genitourinary History: Reports: BPH Musculoskeletal History: Reports: Other (See Below) Other Musculoskeletal History: weakness Neurological History: Reports: CVA Endocrine/Metabolic History: Reports: Hypothyroidism - Past Surgical History Cardiovascular Surgical History: Reports: Carotid Endarterectomy Social & Family History - Family History Family Medical History: Noncontributory - Caffeine Use Caffeine Use: Reports: Coffee ED ROS GENERAL - Review of Systems Review Of Systems: See Below Constitutional: Reports: No Symptoms HEENT: Reports: No Symptoms Respiratory: Reports: No Symptoms Cardiovascular: Reports: Chest Pain, Blood Pressure Problem Endocrine: Reports: No Symptoms GI/Abdominal: Reports: No Symptoms : Reports: No Symptoms Musculoskeletal: Reports: No Symptoms Skin: Reports: No Symptoms Neurological: Reports: No Symptoms Psychiatric: Reports: No Symptoms Hematologic/Lymphatic: Reports: No Symptoms Immunologic: Reports: No Symptoms ED EXAM, GENERAL - Physical Exam Exam: See Below Exam Limited By: No Limitations General Appearance: Alert, No Apparent Distress Ears: Normal External Exam Nose: Normal Inspection Throat/Mouth: Normal Inspection Head: Atraumatic Neck: Normal Inspection, Non-Tender, Full Range of Motion Respiratory/Chest: No Respiratory Distress, Lungs Clear, Normal Breath Sounds Cardiovascular: Normal Peripheral Pulses, Regular Rate, Rhythm, No Edema, No JVD, No Murmur Peripheral Pulses: 3+: Carotid (L), Carotid (R), Dorsalis Pedis (L), Dorsalis Pedis (R) GI/Abdominal: Normal Bowel Sounds, Soft, Non-Tender Back Exam: Normal Inspection, Full Range of Motion Extremities: Normal Inspection, Normal Range of Motion, Non-Tender, No Pedal Edema, Slow Capillary Refill Neurological: Alert, Oriented, Normal Cognition, Normal Gait, No Motor/Sensory Deficits Psychiatric: Normal Affect, Normal Mood Skin Exam: Warm, Dry, Intact Lymphatic: No Adenopathy Course - Vital Signs Last Recorded V/S: Last Vital Signs Temp 100.9 F H 05/05/20 13:00 Pulse 90 05/05/20 13:00 Resp 20 05/05/20 13:00 BP 194/84 H 05/05/20 13:00 Pulse Ox 100 05/05/20 13:00 - Orders/Labs/Meds Orders: Active Orders 24 hr Category Date Time Status Cardiac Monitoring [RC] STAT Care 05/05/20 13:05 Active Communication Order [RC] Per Unit Routine Care 05/05/20 13:05 Active Communication Order [RC] Per Unit Routine Care 05/05/20 13:05 Active Chest 1V Frontal [CR] Stat Exams 05/05/20 12:31 Taken COMPREHENSIVE METABOLIC PN,CMP [CHEM] Stat Lab 05/05/20 12:31 Ordered CORONAVIRUS COVID-19 RAPID [MOLEC] Stat Lab 05/05/20 12:31 Ordered TROPONIN I [CHEM] Stat Lab 05/05/20 12:31 Ordered Heparin Sodium/D5W [Heparin 25,000 Units in D5W 500 ML] Med 05/05/20 13:15 Ordered 25,000 units in 500 ml IV TITRATE Nitroglycerin/D5W [Nitroglycerin 25 MG/D5W 250 ML] Med 05/05/20 13:15 Active 25 mg in 250 ml IV TITRATE Medication Orders Nitroglycerin/Dextrose (Nitroglycerin 25 Mg/D5w 250 Ml) 25 mg in 250 mls @ 3 mls/hr IV TITRATE GUILLERMINA; Protocol Last Admin: 05/05/20 13:43 Dose: 5 mcg/min, 3 mls/hr Documented by: AYDE Heparin Sodium/Dextrose (Heparin 25,000 Units In D5w 500 Ml) 25,000 units in 500 mls @ 0 mls/hr IV TITRATE GUILLERMINA; Protocol Labs: Laboratory Tests 05/05/20 05/05/20 05/05/20 Range/Units 12:54 12:54 12:54 WBC 9.3 D (4.0-11.0) K/uL RBC 4.32 L (4.50-6.50) M/uL Hgb 12.5 L (13.0-18.0) g/dL Hct 39.2 L (40.0-54.0) % MCV 91 (76-96) fL MCH 28.9 (27.0-32.0) pg MCHC 31.9 (31.0-35.0) g/dL RDW 13.7 (11.0-16.0) % Plt Count 176 (150-400) K/uL MPV 11.5 H (6.0-10.0) fL Neut % (Auto) 80.6 H (45.0-70.0) % Lymph % (Auto) 6.9 L (20.0-40.0) % Haines % (Auto) 11.3 H (3.0-10.0) % Eos % (Auto) 1.0 (1.0-5.0) % Baso % (Auto) 0.2 (0.0-0.5) % Neut # (Auto) 7.47 (2.00-7.50) K/uL Lymph # (Auto) 0.64 L (1.50-4.00) K/uL Haines # (Auto) 1.05 H (0.20-0.80) K/uL Eos # (Auto) 0.09 (0.04-0.40) K/uL Baso # (Auto) 0.02 (0.02-0.10) K/uL PT 10.8 (9.0-11.5) sec INR 1.1 (1.0-3.5) APTT 24.2 L (24.4-33.2) SECONDS Meds: Medications Generic Name Dose Route Start Last Admin Trade Name Freq PRN Reason Stop Dose Admin Nitroglycerin/Dextrose 25 mg in 250 mls @ 3 mls/hr 05/05/20 13:15 05/05/20 13:43 Nitroglycerin 25 Mg/D5w 250 Ml IV 5 mcg/min TITRATE GUILLERMINA 3 mls/hr Administration Protocol 5 MCG/MIN Heparin Sodium/Dextrose 25,000 units in 500 mls @ 0 mls/hr 05/05/20 13:15 Heparin 25,000 Units In D5w 500 Ml IV TITRATE GUILLERMINA Protocol 12 UNITS/KG/HR Discontinued Medications Generic Name Dose Route Start Last Admin Trade Name Freq PRN Reason Stop Dose Admin Aspirin 324 mg 05/05/20 12:31 05/05/20 12:10 Aspirin PO 05/05/20 12:32 324 mg ONETIME ONE Administration Heparin Sodium (Porcine) 4,000 units 05/05/20 13:03 05/05/20 13:30 Heparin Sodium IVPUSH 05/05/20 13:04 4,000 units ONETIME ONE Administration Heparin Sodium (Porcine) Confirm 05/05/20 13:34 05/05/20 13:44 Heparin Sodium Administered 05/05/20 13:35 Not Given Dose 10,000 units .ROUTE .STK-MED ONE Nitroglycerin/Dextrose Confirm 05/05/20 13:54 Nitroglycerin 25 Mg/D5w 250 Ml Administered 05/05/20 13:55 Dose 25 mg in 250 mls @ as directed .ROUTE .STK-MED ONE Nitroglycerin 0.4 mg 05/05/20 12:31 Nitrostat SL Q5M PRN Chest Pain Departure - Departure Time of Disposition: 13:54 Disposition: DC/Tfer to Acute Hospital 02 Reason for Transfer *Q: Other Condition: Good Clinical Impression: Acute coronary syndrome Acute myocardial infarction Qualifiers: Myocardial infarction type: unspecified Involved coronary artery: unspecified coronary artery Qualified Code(s): I21.9 - Acute myocardial infarction, unspecified Referrals: Robert Simmons MD [Primary Care Provider] - Sepsis Event Note (ED) - Evaluation Sepsis Screening Result: No Definite Risk - Focused Exam Vital Signs: Vital Signs Temp Pulse Resp BP Pulse Ox 05/05/20 13:00 100.9 F H 90 20 194/84 H 100 - My Orders Last 24 Hours: My Active Orders 05/05/20 12:31 Chest 1V Frontal [CR] Stat COMPREHENSIVE METABOLIC PN,CMP [CHEM] Stat CORONAVIRUS COVID-19 RAPID [MOLEC] Stat TROPONIN I [CHEM] Stat 05/05/20 13:05 Cardiac Monitoring [RC] STAT Communication Order [RC] Per Unit Routine Communication Order [RC] Per Unit Routine 05/05/20 13:15 Heparin Sodium/D5W [Heparin 25,000 Units in D5W 500 ML] 25,000 units in 500 ml IV TITRATE Nitroglycerin/D5W [Nitroglycerin 25 MG/D5W 250 ML] 25 mg in 250 ml IV TITRATE - Assessment/Plan Last 24 Hours: My Active Orders 05/05/20 12:31 Chest 1V Frontal [CR] Stat COMPREHENSIVE METABOLIC PN,CMP [CHEM] Stat CORONAVIRUS COVID-19 RAPID [MOLEC] Stat TROPONIN I [CHEM] Stat 05/05/20 13:05 Cardiac Monitoring [RC] STAT Communication Order [RC] Per Unit Routine Communication Order [RC] Per Unit Routine 05/05/20 13:15 Heparin Sodium/D5W [Heparin 25,000 Units in D5W 500 ML] 25,000 units in 500 ml IV TITRATE Nitroglycerin/D5W [Nitroglycerin 25 MG/D5W 250 ML] 25 mg in 250 ml IV TITRATE Plan: opatient transfered to ICU in [place] for further cardiac work up. Consulted with Dr. Hodgson of cardiology, he would like patient admitted to ICU vs. lab associate at this time. He spoke to Dr. Wheeler of the ICU and he will also be accepting the patient. Patient has remained pain free in the ED. IV heparin and nitro infusing for transfer.
[2020-05-05] MEDS ORDERED: Nitroglycerin/D5W 25 MG/250 ML BOTTLE ONE (13:54)
--- NOTE | 2020-05-06 08:02 | CR ---
Date of Service: 05/05/20 Clinical Data: cp AP CHEST: No priors. The heart size is normal. The lungs are clear. No pneumothorax. No pleural effusions. No evidence of acute intrathoracic disease. [id number] MTDD
== END 2020-05-05 14:23 ==
LOC: LB.ED 12:05
DX: I21.9 Acute myocardial infarction, unspecified (principal); I24.9 Acute ischemic heart disease, unspecified; I48.91 Unspecified atrial fibrillation; E03.9 Hypothyroidism, unspecified; Z86.73 Personal history of transient ischemic attack (TIA), and cerebral infarction without residual deficits; Z79.899 Other long term (current) drug therapy; Z77.123 Contact with and (suspected) exposure to radon and other naturally occurring radiation; Z20.828 Contact with and (suspected) exposure to other viral communicable diseases
CPT/HCPCS: 36415; 71045; 80053; 84484; 85025; 85610; 85730; 93005; 96365; 96366; 96368; 99285-25; A9270-GY; J1644; J3490; U0002

== ENCOUNTER 2024-01-17 18:13 | Emergency (ER) | payer MEDICARE ==
[2024-01-17] MEDS ORDERED: Sodium Chloride 0.9% 10 ML Syringe FLUSH PRN (18:32)
[2024-01-17 18:57] LABS: HEMATOCRIT 44.4 % (40.0-54.0); HEMOGLOBIN 14.2 g/dL (13.0-18.0); MEAN CORPUSCULAR HEMOGLOBIN 28.4 pg (27.0-32.0); MEAN PLATELET VOLUME 11.2 fL (6.0-10.0); WHITE BLOOD CELL COUNT,WBC 7.5 K/uL (4.0-11.0)
[2024-01-17] MEDS: Sodium Chloride 0.9% 1,000 ML IV ONE (19:08)
[2024-01-17] MEDS: Nitroglycerin 0.4 MG Tab.SL SL ONE (19:10)
[2024-01-17 19:15] LABS: BUN/CREATININE RATIO 13.7 (6-25); CALCIUM 9.6 mg/dL (8.5-10.1); CARBON DIOXIDE,CO2 27.5 mmol/L (21.0-32.0); CREATININE 2.27 mg/dL (0.70-1.30); EST CRCL DRUG DOSING (CG) 23.98 mL/min; POTASSIUM,K 4.5 mmol/L (3.5-5.1); TROPONIN I HIGH SENSITIVITY 16.7 pg/ml (<=60.4)
[2024-01-17] MEDS: Isosorbide Mononitrate 30 MG Tab.ER PO ONE (20:22)
== END 2024-01-17 21:22 | disposition home or self-care (01) ==
LOC: LB.ED 18:13
DX: I12.9 Hypertensive chronic kidney disease with stage 1 through stage 4 chronic kidney disease, or unspecified chronic kidney disease (principal); N18.32 Chronic kidney disease, stage 3b; N17.9 Acute kidney failure, unspecified; I48.91 Unspecified atrial fibrillation; E03.9 Hypothyroidism, unspecified; Z79.890 Hormone replacement therapy; Z79.899 Other long term (current) drug therapy; Z86.73 Personal history of transient ischemic attack (TIA), and cerebral infarction without residual deficits
CPT/HCPCS: 36415; 70450; 80048; 84484; 85027; 93005; 96360; 96361; 99284; A9270; J7030

== ENCOUNTER 2024-09-15 23:59 | Observation (INO) | payer MEDICARE ==
[2024-09-16] MEDS ORDERED: Sodium Chloride 0.9% 10 ML Syringe FLUSH PRN (00:07)
[2024-09-16] MEDS: Metoprolol Tartrate 5 MG/5 ML SDV IVPUSH SCH (00:36)
[2024-09-16 00:43] LABS: BASOPHILS ABSOLUTE AUTO 0.02 K/uL (0.02-0.10); BASOPHILS PERCENT AUTO 0.3 % (0.0-0.5); EOSINOPHILS PERCENT AUTO 3.8 % (1.0-5.0); HEMATOCRIT 36.7 % (40.0-54.0); LYMPHOCYTES ABSOLUTE AUTO 1.02 K/uL (1.50-4.00); MEAN CORPUSCULAR HEMOGLOBIN 29.1 pg (27.0-32.0); MEAN CORPUSCULAR HGB CONC 32.7 g/dL (31.0-35.0); MEAN CORPUSCULAR VOLUME 89 fL (76-96); MEAN PLATELET VOLUME 10.9 fL (6.0-10.0); MONOCYTES ABSOLUTE AUTO 0.86 K/uL (0.20-0.80); MONOCYTES PERCENT AUTO 10.9 % (3.0-10.0); NEUTROPHILS ABSOLUTE AUTO 5.66 K/uL (2.00-7.50); PLATELET COUNT,PLT 242 K/uL (150-400); RED BLOOD CELL COUNT 4.13 M/uL (4.50-6.50); RED CELL DISTRIBUTION WIDTH 14.1 % (11.0-16.0); WHITE BLOOD CELL COUNT,WBC 7.9 K/uL (4.0-11.0)
[2024-09-16 01:03] LABS: A/G RATIO 0.9 (0.8-2.0); ALBUMIN 3.6 g/dL (3.4-5.0); ANION GAP 15.1 mmol/L (5.0-15.0); BILIRUBIN TOTAL 0.6 mg/dL (0.0-1.0); BUN/CREATININE RATIO 13.3 (6-25); CALCIUM 9.5 mg/dL (8.5-10.1); CARBON DIOXIDE,CO2 25.8 mmol/L (21.0-32.0); CREATININE 2.33 mg/dL (0.70-1.30); EST CRCL DRUG DOSING (CG) 25.74 mL/min; POTASSIUM,K 3.9 mmol/L (3.5-5.1); PROTEIN TOTAL,TP 7.7 g/dL (6.4-8.2); TROPONIN I HIGH SENSITIVITY 21.3 pg/ml (<=60.4)
[2024-09-16] MEDS: Metoprolol Tartrate 25 MG Tab PO ONE ×2 (01:04→21:34)
[2024-09-16 01:21] LABS: PTT,PARTIAL THROMBOPLSTIN TIME 25.2 SECONDS (24.4-33.2)
[2024-09-16 01:22] LABS: PROTHROMBIN TIME 10.5 sec (9.0-11.5)
[2024-09-16] MEDS: Metoprolol Tartrate 5 MG/5 ML SDV ONE (02:43)
[2024-09-16] MEDS ORDERED: Isosorbide Mononitrate 30 MG Tab.ER PO ONE (03:12)
[2024-09-16] MEDS: Isosorbide Mononitrate 30 MG Tab.ER PO ONE ×2 (03:18→16:13)
[2024-09-16] MEDS: hydrALAZINE 25 MG Tab PO ONE ×2 (03:18→19:15)
[2024-09-16] MEDS: amLODIPine 5 MG Tab PO ONE (03:18)
[2024-09-16] MEDS: Metoprolol Succinate 25 MG Tab.ER PO ONE (14:46)
[2024-09-16] MEDS: amLODIPine 2.5 MG Tab PO ONE ×2 (14:47→21:33)
[2024-09-17] MEDS: hydrALAZINE 25 MG Tab PO PRN (03:17)
[2024-09-17] MEDS: Nitroglycerin 0.4 MG Tab.SL SL PRN (04:45)
[2024-09-17] MEDS: Nitroglycerin 0.4 MG Tab.SL ONE (04:50)
[2024-09-17] MEDS: amLODIPine 5 MG Tab PO ONE (05:28)
[2024-09-17] MEDS: Metoprolol Tartrate 25 MG Tab PO ONE ×2 (05:28→09:14)
[2024-09-17 08:48] LABS: BUN/CREATININE RATIO 13.5 (6-25); CALCIUM 9.2 mg/dL (8.5-10.1); CARBON DIOXIDE,CO2 23.7 mmol/L (21.0-32.0); CREATININE 2.51 mg/dL (0.70-1.30); EST CRCL DRUG DOSING (CG) 20.17 mL/min; TROPONIN I HIGH SENSITIVITY 36.1 pg/ml (<=60.4)
[2024-09-17 09:03] LABS: BASOPHILS ABSOLUTE AUTO 0.03 K/uL (0.02-0.10); BASOPHILS PERCENT AUTO 0.4 % (0.0-0.5); EOSINOPHILS PERCENT AUTO 2.4 % (1.0-5.0); HEMATOCRIT 33.9 % (40.0-54.0); HEMOGLOBIN 11.1 g/dL (13.0-18.0); LYMPHOCYTES ABSOLUTE AUTO 1.01 K/uL (1.50-4.00); MEAN CORPUSCULAR HEMOGLOBIN 29.3 pg (27.0-32.0); MEAN CORPUSCULAR HGB CONC 32.7 g/dL (31.0-35.0); MEAN CORPUSCULAR VOLUME 89 fL (76-96); MEAN PLATELET VOLUME 10.8 fL (6.0-10.0); MONOCYTES ABSOLUTE AUTO 1.08 K/uL (0.20-0.80); MONOCYTES PERCENT AUTO 12.8 % (3.0-10.0); NEUTROPHILS ABSOLUTE AUTO 6.09 K/uL (2.00-7.50); NEUTROPHILS PERCENT AUTO 72.4 % (45.0-70.0); PLATELET COUNT,PLT 215 K/uL (150-400); RED BLOOD CELL COUNT 3.79 M/uL (4.50-6.50); RED CELL DISTRIBUTION WIDTH 14.4 % (11.0-16.0); WHITE BLOOD CELL COUNT,WBC 8.4 K/uL (4.0-11.0)
[2024-09-17] MEDS: cloNIDine 0.1 MG Tab PO SCH (09:14)
[2024-09-17 09:39] LABS: ANION GAP 14.1 mmol/L (5.0-15.0); POTASSIUM,K 3.8 mmol/L (3.5-5.1)
[2024-09-17] MEDS ORDERED: Isosorbide Mononitrate 30 MG Tab.ER PO SCH (10:45)
[2024-09-17] MEDS: cloNIDine 0.1 MG Tab PO ONE (11:56)
[2024-09-17] MEDS: amLODIPine 5 MG Tab PO SCH (20:05)
[2024-09-17] MEDS: Metoprolol Tartrate 25 MG Tab PO SCH (20:05)
[2024-09-18] MEDS: Isosorbide Mononitrate 30 MG Tab.ER PO SCH (07:27)
[2024-09-18 10:05] VITALS: PULSE 57
[2024-09-18 10:43] LABS: ANION GAP 13.9 mmol/L (5.0-15.0); BUN/CREATININE RATIO 14.8 (6-25); CALCIUM 8.5 mg/dL (8.5-10.1); CARBON DIOXIDE,CO2 23.1 mmol/L (21.0-32.0); CREATININE 2.63 mg/dL (0.70-1.30); EST CRCL DRUG DOSING (CG) 19.25 mL/min; TROPONIN I HIGH SENSITIVITY 35.4 pg/ml (<=60.4)
[2024-09-18] MEDS ORDERED: Sodium Chloride 0.9% 10 ML Syringe FLUSH PRN (11:03)
[2024-09-18] MEDS ORDERED: Ketorolac 15 MG/ML SDV IVPUSH ONE (11:04)
[2024-09-18] MEDS ORDERED: Ondansetron 4 MG/2 ML SDV IVPUSH ONE (11:04)
[2024-09-18] MEDS ORDERED: Morphine 4 MG/ML VIAL IVPUSH ONE (11:07)
[2024-09-18] MEDS ORDERED: Naloxone 2 MG/2 ML Syringe IVPUSH PRN (11:07)
[2024-09-18 12:51] VITALS: BP 115/61
== END 2024-09-18 14:30 | disposition home or self-care (01) ==
LOC: LB.ED 23:59 → LB.MS 09-16 08:52
PROVIDERS: ADMIT Family Medicine; ATTEND Family Medicine
DX: I12.9 Hypertensive chronic kidney disease with stage 1 through stage 4 chronic kidney disease, or unspecified chronic kidney disease (principal); N18.4 Chronic kidney disease, stage 4 (severe); I21.A1 Myocardial infarction type 2; N17.9 Acute kidney failure, unspecified; E03.8 Other specified hypothyroidism; Z79.899 Other long term (current) drug therapy; Z79.890 Hormone replacement therapy
CPT/HCPCS: 36415; 80048; 80053; 83880; 84443; 84484; 85025; 85610; 85730; 93005; 93010; 96374; 96376; 99223; 99233; 99238; 99285-25; A9270-GY; G0378; J3490